=== PATIENT | female | born 1985 | race Caucasian/White ===

== ENCOUNTER 2021-12-19 14:19 | Inpatient (IN) | payer MEDICAID, SELFPAY ==
[2021-12-19] VITALS (7 sets, daily range): BP systolic 104–128; BP diastolic 68–87; PULSE 95–129; RESP 12–18; TEMP 36.7–37; O2SAT 95–99; BMI 20.3
--- NOTE | ~2021-12-19 | US_ITS ---
EXAMINATION: US ABDOMEN LIMITED CLINICAL INFORMATION: Elevated liver function tests. COMPARISON: Previous CT of the abdomen and pelvis 12/19/2021 TECHNIQUE: Real-time imaging of the right upper quadrant abdominal viscera. FINDINGS: PANCREAS: Normal. LIVER: The liver is normal in size. The liver contour is normal. Parenchymal echogenicity is increased.. No focal hepatic lesion. There is no intrahepatic biliary duct dilatation seen. GALLBLADDER: Normal. The gallbladder is physiologically distended without evidence of stones, sludge, polyps, wall thickening or pericholecystic fluid. COMMON BILE DUCT: Normal in caliber measuring 0.2 cm in diameter. RIGHT KIDNEY: Normal. No hydronephrosis. No renal calculi or focal parenchymal lesions. The kidney measures 12 cm in maximum dimension. FREE FLUID: None. US/US abdomen limited IMPRESSION: Echogenic liver suggestive of fatty infiltration. Otherwise unremarkable exam.
--- NOTE | ~2021-12-19 | CT_ITS ---
EXAMINATION: CT ABDOMEN AND PELVIS WITHOUT CONTRAST CLINICAL INFORMATION: Thrombocytopenia, cirrhosis . COMPARISON: No pertinent prior studies are available for comparison. TECHNIQUE: Multidetector volumetric imaging was performed from the superior aspect of the liver through the pubic symphysis without contrast per request. Sagittal and coronal reformatted images were obtained on the technologist workstation. This CT examination was performed using dose optimization techniques as appropriate, variously including the following: *Automated exposure control *Adjustment of mA and/or kV according to patient size (this includes techniques or standardized protocols for targeted exams where dose is matched to indication/reason for exam; i.e. extremities or head) *Use of iterative reconstruction technique DLP: 325 mGy-cm. FINDINGS: LUNG BASES: The visualized lung bases are unremarkable. LIVER, GALLBLADDER, BILIARY TREE: Significant fatty infiltration seen throughout the liver parenchyma without focal hepatic lesion nor obvious biliary ductal dilatation. The gallbladder is unremarkable with no evidence of radiopaque gallstones, gallbladder wall thickening, or obvious pericholecystic inflammatory changes. PANCREAS: Unremarkable. SPLEEN: Unremarkable. ADRENAL GLANDS: Unremarkable. KIDNEYS AND URETERS: The kidneys are normal in size, shape, and attenuation. No hydronephrosis, hydroureter, or calculi seen. No perinephric stranding. BLADDER: Air in the nondependent portion the bladder. Uncertain if this due to infectious etiology or catheterization GASTROINTESTINAL TRACT: The small and large bowel are unremarkable. The appendix is is not well-visualized but no focal inflammatory changes seen in the right lower quadrant. ABDOMINAL WALL: No significant hernia is appreciated. LYMPHOVASCULAR STRUCTURES: No lymphadenopathy. The aorta is unremarkable.. PELVIC VISCERA: Small amount of air in the vaginal vault of uncertain etiology. OSSEUS STRUCTURES: Unremarkable. CT/CT abdomen pelvis wo con IMPRESSION: Significant diffuse fatty infiltration of the liver but no focal hepatic lesion nor biliary ductal dilatation. Air is seen in the nondependent portion the bladder. Etiology of this is uncertain. Infectious etiology/cystitis could have this appearance although I do not appreciate any lateral wall thickening. Clinical correlation and/or correlation with urinalysis would be recommended.
--- NOTE | 2021-12-19 14:32 | ED.PSYCH ---
HPI - Psych General Chief Complaint: ETOH/Substance Use Stated Complaint: WANTS DETOX FOR ETOH,LAST DRANK THIS AM Time Seen by Provider: 12/19/21 14:32 Source: patient Mode of arrival: EMS Limitations: no limitations History of Present Illness HPI Narrative: Patient alcoholic been drinking heavy for last 2 weeks usually drinks wine was at [facility] [place], forced out of the hotel by PD requesting for detox. Patient also complaining of bleed which is frequent for her as she has low platelets no head injuries no rectal bleed denies any suicidal ideation/HI/AVH/VH patient was admitted to hospitals about 6 months ago and that time her platelet counts were 17,000 patient denies any abdominal pain no rectal bleeding melena Related Data Home Medications Medication Instructions Recorded Confirmed gabapentin 300 mg capsule 2 cap PO TID 12/19/21 12/19/21 multivitamin 1 tab PO DAILY 12/19/21 12/19/21 naltrexone 50 mg tablet 50 mg PO DAILY 12/19/21 12/19/21 Allergies Allergy/AdvReac Type Severity Reaction Status Date / Time No Known Allergies Allergy Verified 12/19/21 14:34 Review of Systems Review of Systems: Yes all other systems are reviewed and are negative FORMERLY [facility], [facility] Past Medical History Medical History Alcohol dependence Thrombocythemia Social History Social History Advance Directives: No Advance Directives Information Provided: No Physical Exam Vital Signs: Vital Signs: Last Vital Signs Temp 98.1 F 12/19/21 22:56 Pulse 114 H 12/19/21 22:56 Resp 14 12/19/21 22:56 BP 104/68 12/19/21 22:56 Pulse Ox 98 12/19/21 22:56 BMI result Body Mass Index 20.3 Appearance: Alert. Oriented X3. No acute distress. Eyes: PERRLA, No Nystagmus ENT: Pharynx normal. Oral Mucosa moist dried nosebleed Neck: Normal inspection. Neck supple. CVS: Normal heart rate and rhythm. Pulses normal. Respiratory: No respiratory distress. Equal air entry bilateral, no wheezing/rales/rhonchi Abdomen: Soft and nontender. Bowel sounds are present, no mass palpable, no CVA tenderness Skin: Skin warm and dry. Normal skin color. Normal skin turgor. Extremities: No lower extremity edema. No calf tenderness Psych mood stable, no delusions or hallucination denies SI/HI Neuro: Oriented X 3. No motor deficit. No sensory deficit.No cerebellar signs , cranial nerves II-XII intact MDM - Psych MDM Narrative Medical decision making narrative: Patient alcoholic with significant alcoholic hepatitis with significant thrombocytopenia with poor follow-up in the past with minor bleeding from the nose no active bleeding at this time H&H stable CT scan abdomen negative for splenomegaly or any acute pathology. 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 Lab Data Attestation: I reviewed the patient's lab results. Result diagrams: 12/19/21 16:36 12/19/21 16:36 Labs: Lab Results 12/19/21 12/19/21 12/19/21 Range/Units 15:09 15:09 15:13 WBC (4.8-10.8) X10*3/uL RBC (4.20-5.50) X10*6/uL Hgb (12.0-16.0) g/dl Hct (37.0-47.0) % MCV (80.0-98.0) fL MCH (27.0-33.0) pg MCHC (31.0-35.0) g/dl RDW (11.0-16.0) % Plt Count (160-400) X10*3/uL MPV (9.4-12.3) fL Immature Gran % (Auto) (0.0-0.4) % Neut % (Auto) (45-73) % Lymph % (Auto) (20-40) % Reeves % (Auto) (2-11) % Eos % (Auto) (0-4) % Baso % (Auto) (0-2) % Lymph # (Auto) (1.2-4.9) X10*3/uL Reeves # (Auto) (0.1-1.2) X10*3/uL Eos # (Auto) (0.0-0.4) X10*3/uL Baso # (Auto) (0.0-0.2) X10*3/uL Abs Immat Gran (auto) (0.00-0.03) X10*3/uL Absolute Neuts (auto) (2.0-8.3) x10*3/uL Absolute Nucleated RBC (0.0-0.012) X10*3/uL Nucleated RBC % (auto) (0.0-0.2) /100WBC Smear Tech's Comments PT (9.9-13.0) SEC INR (0.9-1.1) APTT (24.1-38.0) SEC Sodium (135-145) mmol/L Potassium (3.3-5.1) mmol/L Chloride (96-108) mmol/L Carbon Dioxide (22-29) mmol/L Anion Gap (12-20) BUN (9-16) mg/dL Creatinine (0.5-1.4) mg/dL Estim Creat Clear Calc Estimated GFR Random Glucose (60-115) mg/dL Calcium (8.4-10.2) mg/dL Magnesium (1.6-2.6) mg/dL Total Bilirubin (0.0-1.0) mg/dL Direct Bilirubin (0.0-0.5) mg/dL AST (5-31) U/L ALT (0-31) U/L Alkaline Phosphatase (39-117) U/L Total Protein (6.5-8.0) g/dL Albumin (3.5-5.0) g/dL Vitamin B12 (200-900) pg/mL Folate (> or = 4.0) ng/mL TSH (0.32-4.0) uIU/mL Urine Color YELLOW Urine Appearance HAZY Urine pH 5.5 (5.0-8.0) Ur Specific [place] >= 1.030 H (1.005-1.025) Urine Protein 1+ H (NEG-TRACE) MG/DL Urine Glucose (UA) NEG (NEG) MG/DL Urine Ketones 15 (NEG) MG/DL Urine Blood 2+ H (NEG) Urine Nitrite NEG (NEG) Ur Leukocyte Esterase TRACE H (NEG) Urine RBC 0-2 (0) /HPF Urine WBC 1-4 (0-4) /HPF Ur Squamous Epith Cells 2+ /LPF Urine Bacteria 4+ /LPF Urine Test NEGATIVE (NEGATIVE) Urine Opiates Screen Not Detected (Not Detect) Urine Fentanyl Screen Not Detected (Not Detect) Ur Barbiturates Screen Not Detected (Not Detect) Ur Phencyclidine Scrn Not Detected (Not Detect) Ur Amphetamines Screen Not Detected (Not Detect) U Benzodiazepines Scrn Not Detected (Not Detect) Urine Cocaine Screen Not Detected (Not Detect) U Marijuana (THC) Screen Not Detected (Not Detect) Ethyl Alcohol mg/dL Acetone, Qual (Negative) COVID-19 (TERRELL) (Negative) COVID-19 Clin Com Influenza Type A (BIJAL) (Negative) Influenza Type B (BIJAL) (Negative) Influenza A & B Note Blood Type Antibody Screen 12/19/21 12/19/21 12/19/21 Range/Units 15:21 16:36 16:36 WBC 2.4 L (4.8-10.8) X10*3/uL RBC 4.12 L (4.20-5.50) X10*6/uL Hgb 12.9 (12.0-16.0) g/dl Hct 35.7 L (37.0-47.0) % MCV 86.7 (80.0-98.0) fL MCH 31.3 (27.0-33.0) pg MCHC 36.1 H (31.0-35.0) g/dl RDW 13.2 (11.0-16.0) % Plt Count 11 L* (160-400) X10*3/uL MPV 10.1 (9.4-12.3) fL Immature Gran % (Auto) 1.7 H (0.0-0.4) % Neut % (Auto) 61.0 (45-73) % Lymph % (Auto) 31.4 (20-40) % Reeves % (Auto) 5.9 (2-11) % Eos % (Auto) 0.0 (0-4) % Baso % (Auto) 0.0 (0-2) % Lymph # (Auto) 0.7 L (1.2-4.9) X10*3/uL Reeves # (Auto) 0.1 (0.1-1.2) X10*3/uL Eos # (Auto) 0.0 (0.0-0.4) X10*3/uL Baso # (Auto) 0.0 (0.0-0.2) X10*3/uL Abs Immat Gran (auto) 0.04 H (0.00-0.03) X10*3/uL Absolute Neuts (auto) 1.4 L (2.0-8.3) x10*3/uL Absolute Nucleated RBC 0.020 H (0.0-0.012) X10*3/uL Nucleated RBC % (auto) 0.8 H (0.0-0.2) /100WBC Smear Tech's Comments VERIFIED PT (9.9-13.0) SEC INR (0.9-1.1) APTT (24.1-38.0) SEC Sodium 135 (135-145) mmol/L Potassium 3.8 (3.3-5.1) mmol/L Chloride 88 L (96-108) mmol/L Carbon Dioxide 27 (22-29) mmol/L Anion Gap 24 H (12-20) BUN 15 (9-16) mg/dL Creatinine 0.73 (0.5-1.4) mg/dL Estim Creat Clear Calc 99.1 Estimated GFR > 60 Random Glucose 80 (60-115) mg/dL Calcium 8.4 (8.4-10.2) mg/dL Magnesium (1.6-2.6) mg/dL Total Bilirubin 2.1 H (0.0-1.0) mg/dL Direct Bilirubin 1.4 H (0.0-0.5) mg/dL AST 795 H (5-31) U/L ALT 275 H (0-31) U/L Alkaline Phosphatase 165 H (39-117) U/L Total Protein 7.8 (6.5-8.0) g/dL Albumin 4.5 (3.5-5.0) g/dL Vitamin B12 (200-900) pg/mL Folate (> or = 4.0) ng/mL TSH (0.32-4.0) uIU/mL Urine Color Urine Appearance Urine pH (5.0-8.0) Ur Specific [place] (1.005-1.025) Urine Protein (NEG-TRACE) MG/DL Urine Glucose (UA) (NEG) MG/DL Urine Ketones (NEG) MG/DL Urine Blood (NEG) Urine Nitrite (NEG) Ur Leukocyte Esterase (NEG) Urine RBC (0) /HPF Urine WBC (0-4) /HPF Ur Squamous Epith Cells /LPF Urine Bacteria /LPF Urine Test (NEGATIVE) Urine Opiates Screen (Not Detect) Urine Fentanyl Screen (Not Detect) Ur Barbiturates Screen (Not Detect) Ur Phencyclidine Scrn (Not Detect) Ur Amphetamines Screen (Not Detect) U Benzodiazepines Scrn (Not Detect) Urine Cocaine Screen (Not Detect) U Marijuana (THC) Screen (Not Detect) Ethyl Alcohol mg/dL Acetone, Qual (Negative) COVID-19 (TERRELL) Negative (Negative) COVID-19 Clin Com See Note Influenza Type A (BIJAL) (Negative) Influenza Type B (BIJAL) (Negative) Influenza A & B Note Blood Type Antibody Screen 12/19/21 12/19/21 12/19/21 Range/Units 16:36 16:36 16:36 WBC (4.8-10.8) X10*3/uL RBC (4.20-5.50) X10*6/uL Hgb (12.0-16.0) g/dl Hct (37.0-47.0) % MCV (80.0-98.0) fL MCH (27.0-33.0) pg MCHC (31.0-35.0) g/dl RDW (11.0-16.0) % Plt Count (160-400) X10*3/uL MPV (9.4-12.3) fL Immature Gran % (Auto) (0.0-0.4) % Neut % (Auto) (45-73) % Lymph % (Auto) (20-40) % Reeves % (Auto) (2-11) % Eos % (Auto) (0-4) % Baso % (Auto) (0-2) % Lymph # (Auto) (1.2-4.9) X10*3/uL Reeves # (Auto) (0.1-1.2) X10*3/uL Eos # (Auto) (0.0-0.4) X10*3/uL Baso # (Auto) (0.0-0.2) X10*3/uL Abs Immat Gran (auto) (0.00-0.03) X10*3/uL Absolute Neuts (auto) (2.0-8.3) x10*3/uL Absolute Nucleated RBC (0.0-0.012) X10*3/uL Nucleated RBC % (auto) (0.0-0.2) /100WBC Smear Tech's Comments PT (9.9-13.0) SEC INR (0.9-1.1) APTT (24.1-38.0) SEC Sodium (135-145) mmol/L Potassium (3.3-5.1) mmol/L Chloride (96-108) mmol/L Carbon Dioxide (22-29) mmol/L Anion Gap (12-20) BUN (9-16) mg/dL Creatinine (0.5-1.4) mg/dL Estim Creat Clear Calc Estimated GFR Random Glucose (60-115) mg/dL Calcium (8.4-10.2) mg/dL Magnesium 2.4 (1.6-2.6) mg/dL Total Bilirubin (0.0-1.0) mg/dL Direct Bilirubin (0.0-0.5) mg/dL AST (5-31) U/L ALT (0-31) U/L Alkaline Phosphatase (39-117) U/L Total Protein (6.5-8.0) g/dL Albumin (3.5-5.0) g/dL Vitamin B12 (200-900) pg/mL Folate (> or = 4.0) ng/mL TSH 0.68 (0.32-4.0) uIU/mL Urine Color Urine Appearance Urine pH (5.0-8.0) Ur Specific [place] (1.005-1.025) Urine Protein (NEG-TRACE) MG/DL Urine Glucose (UA) (NEG) MG/DL Urine Ketones (NEG) MG/DL Urine Blood (NEG) Urine Nitrite (NEG) Ur Leukocyte Esterase (NEG) Urine RBC (0) /HPF Urine WBC (0-4) /HPF Ur Squamous Epith Cells /LPF Urine Bacteria /LPF Urine Test (NEGATIVE) Urine Opiates Screen (Not Detect) Urine Fentanyl Screen (Not Detect) Ur Barbiturates Screen (Not Detect) Ur Phencyclidine Scrn (Not Detect) Ur Amphetamines Screen (Not Detect) U Benzodiazepines Scrn (Not Detect) Urine Cocaine Screen (Not Detect) U Marijuana (THC) Screen (Not Detect) Ethyl Alcohol 438 H* mg/dL Acetone, Qual Negative (Negative) COVID-19 (TERRELL) (Negative) COVID-19 Clin Com Influenza Type A (BIJAL) Negative (Negative) Influenza Type B (BIJAL) Negative (Negative) Influenza A & B Note See Note Blood Type Antibody Screen 12/19/21 12/19/21 12/19/21 Range/Units 16:36 19:16 19:16 WBC (4.8-10.8) X10*3/uL RBC (4.20-5.50) X10*6/uL Hgb (12.0-16.0) g/dl Hct (37.0-47.0) % MCV (80.0-98.0) fL MCH (27.0-33.0) pg MCHC (31.0-35.0) g/dl RDW (11.0-16.0) % Plt Count (160-400) X10*3/uL MPV (9.4-12.3) fL Immature Gran % (Auto) (0.0-0.4) % Neut % (Auto) (45-73) % Lymph % (Auto) (20-40) % Reeves % (Auto) (2-11) % Eos % (Auto) (0-4) % Baso % (Auto) (0-2) % Lymph # (Auto) (1.2-4.9) X10*3/uL [place]eves # (Auto) (0.1-1.2) X10*3/uL Eos # (Auto) (0.0-0.4) X10*3/uL Baso # (Auto) (0.0-0.2) X10*3/uL Abs Immat Gran (auto) (0.00-0.03) X10*3/uL Absolute Neuts (auto) (2.0-8.3) x10*3/uL Absolute Nucleated RBC (0.0-0.012) X10*3/uL Nucleated RBC % (auto) (0.0-0.2) /100WBC Smear Tech's Comments PT 11.5 (9.9-13.0) SEC INR 1.0 (0.9-1.1) APTT 34.3 (24.1-38.0) SEC Sodium (135-145) mmol/L Potassium (3.3-5.1) mmol/L Chloride (96-108) mmol/L Carbon Dioxide (22-29) mmol/L Anion Gap (12-20) BUN (9-16) mg/dL Creatinine (0.5-1.4) mg/dL Estim Creat Clear Calc Estimated GFR Random Glucose (60-115) mg/dL Calcium (8.4-10.2) mg/dL Magnesium (1.6-2.6) mg/dL Total Bilirubin (0.0-1.0) mg/dL Direct Bilirubin (0.0-0.5) mg/dL AST (5-31) U/L ALT (0-31) U/L Alkaline Phosphatase (39-117) U/L Total Protein (6.5-8.0) g/dL Albumin (3.5-5.0) g/dL Vitamin B12 1217 H (200-900) pg/mL Folate > 20.0 (> or = 4.0) ng/mL TSH (0.32-4.0) uIU/mL Urine Color Urine Appearance Urine pH (5.0-8.0) Ur Specific [place] (1.005-1.025) Urine Protein (NEG-TRACE) MG/DL Urine Glucose (UA) (NEG) MG/DL Urine Ketones (NEG) MG/DL Urine Blood (NEG) Urine Nitrite (NEG) Ur Leukocyte Esterase (NEG) Urine RBC (0) /HPF Urine WBC (0-4) /HPF Ur Squamous Epith Cells /LPF Urine Bacteria /LPF Urine Test (NEGATIVE) Urine Opiates Screen (Not Detect) Urine Fentanyl Screen (Not Detect) Ur Barbiturates Screen (Not Detect) Ur Phencyclidine Scrn (Not Detect) Ur Amphetamines Screen (Not Detect) U Benzodiazepines Scrn (Not Detect) Urine Cocaine Screen (Not Detect) U Marijuana (THC) Screen (Not Detect) Ethyl Alcohol mg/dL Acetone, Qual (Negative) COVID-19 (TERRELL) (Negative) COVID-19 Clin Com Influenza Type A (BIJAL) (Negative) Influenza Type B (BIJAL) (Negative) Influenza A & B Note Blood Type O Positive Antibody Screen NEGATIVE Discharge Plan Discharge Clinical Impression: Alcoholic intoxication, Thrombocytopenia, Elevated LFTs Patient Disposition: Admitted As Inpatient
[2021-12-19] MEDS: Folic Acid 1 MG TABLET PO (15:22)
[2021-12-19] MEDS: Thiamine HCL 100 MG TABLET PO (15:22)
[2021-12-19 15:33] LABS: Appearance Urine HAZY; Color Urine YELLOW; Glucose Urine UA NEG (NEG); Leukocyte Esterase Urine TRACE (NEG); Nitrite Urine NEG (NEG); PH 5.5 (5.0-8.0); Specific Gravity - Urine >= 1.030 (1.005-1.025); UACC Culture Trigger NO; Urine Blood 2+ (NEG); Urine Ketones 15 MG/DL (NEG); Urine Protein 1+ MG/DL (NEG-TRACE)
[2021-12-19 15:36] LABS: UPreg QC Valid YES; Urine Pregnancy NEGATIVE (NEGATIVE)
[2021-12-19 15:45] LABS: Bacteria Urine 4+ /LPF; RBC Urine 0-2 /HPF (0); Squamous Epithelial Cell Urine 2+ /LPF
[2021-12-19 15:46] LABS: Amphetamine Screen Urine Not Detected (Not Detect); Barbiturates, Urine Not Detected (Not Detect); Benzodiazepines Screen Urine Not Detected (Not Detect); Cannabinoid Screen Urine Not Detected (Not Detect); Cocaine Screen Urine Not Detected (Not Detect); Fentanyl, urine Not Detected (Not Detect); Opiate Screen Urine Not Detected (Not Detect); Phencyclidine Screen Urine Not Detected (Not Detect)
[2021-12-19 15:52] LABS: COVID-19 Test Negative (Negative); IDNOW Serial# 55D5AD1C
[2021-12-19 16:55] LABS: Ethanol 438 mg/dL
[2021-12-19 16:57] LABS: Influenza A Negative (Negative); Influenza B2 Negative (Negative); Magnesium 2.4 mg/dL (1.6-2.6)
[2021-12-19 16:58] LABS: Alanine Aminotransferase 275 U/L (0-31); Albumin Level 4.5 g/dL (3.5-5.0); Alkaline Phosphatase 165 U/L (39-117); Anion Gap 24 (12-20); Aspartate Amino Transferase 795 U/L (5-31); Bilirubin Direct 1.4 mg/dL (0.0-0.5); Bilirubin Total 2.1 mg/dL (0.0-1.0); Blood Urea Nitrogen 15 mg/dL (9-16); Calcium 8.4 mg/dL (8.4-10.2); Carbon Dioxide 27 mmol/L (22-29); Chloride 88 mmol/L (96-108); Creatinine Clr Calc Pharmacy 99.1; Estimated Glomerular Filt Rate > 60; Glucose Random 80 mg/dL (60-115); Potassium 3.8 mmol/L (3.3-5.1); Sodium 135 mmol/L (135-145); Total Protein 7.8 g/dL (6.5-8.0)
[2021-12-19 17:01] LABS: Hematocrit 35.7 % (37.0-47.0); Hemoglobin 12.9 g/dl (12.0-16.0); Imm Gran Abs Auto 0.04 X10*3/uL (0.00-0.03); Imm Gran Pct Auto 1.7 % (0.0-0.4); Lymphocytes Absolute Auto 0.7 X10*3/uL (1.2-4.9); Lymphocytes Percent Auto 31.4 % (20-40); MANUAL DIFF FLAG SCAN; Mean Corpuscular HGB Conc 36.1 g/dl (31.0-35.0); Mean Corpuscular Hemoglobin 31.3 pg (27.0-33.0); Mean Corpuscular Volume 86.7 fL (80.0-98.0); Mean Platelet Volume 10.1 fL (9.4-12.3); Monocytes Absolute Auto 0.1 X10*3/uL (0.1-1.2); Monocytes Percent Auto 5.9 % (2-11); NRBC Pct Auto 0.8 /100WBC (0.0-0.2); Neutrophils Absolute Auto 1.4 x10*3/uL (2.0-8.3); Red Blood Count 4.12 X10*6/uL (4.20-5.50); Red Cell Distribution Width 13.2 % (11.0-16.0); SCAN SMEAR FLAG 1
[2021-12-19 17:22] LABS: White Blood Count 2.4 X10*3/uL (4.8-10.8)
[2021-12-19 17:24] LABS: Platelet Count 11 X10*3/uL (160-400)
[2021-12-19 17:51] LABS: Acetone, serum QL Negative (Negative); SLIDE REVIEW VERIFIED
[2021-12-19 18:31] LABS: Thyroid Stimulating Hormone 0.68 uIU/mL (0.32-4.0)
[2021-12-19] MEDS: LORazepam 2 MG/ML VIAL 1 MG IVPUSH (18:37)
[2021-12-19] MEDS: Dextrose 5 % and 0.45 % NaCl 1,000 ML 125 ML IVCONT (18:38)
--- NOTE | 2021-12-19 18:38 | MHC.RECOVSUP ---
Addendum entered by David Jarrett 12/19/21 19:42: Patient was admitted Original Note: ? Reason for consult:Recovery Support o Current location:ED 15 o Identified substance use concern:ETOH - Seeking ATS (detox) - Support ? Intervention: o ATS bed search started/completed/in process o Community resources provided o Harm reduction discussion ? Plan: o Referral to CCC o Bed search in progress to o Follow up tomorrow o Patient awaiting crisis evaluation o Patient to follow up with HF after discharge ? Additional information:Patient seeking detox, [facility] tomorrow at 9:45am f/u tomorrow
[2021-12-19 18:52] LABS: Folate > 20.0 ng/mL (> or = 4.0); Vitamin B12 1217 pg/mL (200-900)
[2021-12-19 19:37] LABS: Prothrombin Time 11.5 SEC (9.9-13.0)
[2021-12-19 19:40] LABS: Partial Thromboplastin Time 34.3 SEC (24.1-38.0)
--- NOTE | 2021-12-19 20:13 | PC.NURSE ---
Addendum entered by Jeanne Ferguson 12/20/21 06:56: Report given to MIKE Ayala Addendum entered by Jeanne Ferguson 12/20/21 06:23: Dr. Ryan made aware of platelets count 17, no new order given Addendum entered by Jeanne Ferguson 12/19/21 21:24: ptt started on platelets transfusion, educated on signs and symptoms of reactions, verbalized understanding Original Note: report received from MIKE Timmons. pt is alert and oriented. sitter by bedside. no signs of acute distress notice. breathing equally unlabored.
--- NOTE | 2021-12-19 20:27 | PHA.MEDREC ---
Pharmacy Consult ? Medication Reconciliation Pharmacy has completed the medication reconciliation. Spoke with patient in the ED. Patient has not taken her medications in a couple weeks
--- NOTE | 2021-12-19 20:46 | PM.IMHP ---
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 She has been staying at a local hotel and was forced out by Police and was seeking detox, he reports having being feeling sick with nause and vomitting and has had nosebleed. Her platlet cout is 11, no obvious signs of alcohol withdrawal, alochol level is 438, LFTs are high, normal INR Review of Systems Review of Systems: Gen: no fever Resp: no sob, no cough CV: no chest, no VILLANUEVA, no leg edema GI: + n/v, no abd pain Neuro: No confusion, no tremors Yes all other systems are reviewed and are negative [facility] Medical History (Updated 12/19/21 @ 21:02 by Soham Ryan MD) Alcohol dependence Thrombocythemia Pertinent family history: grand parent with alcholism Social History Advance Directives: No Advance Directives Information Provided: No Meds Allergies Allergy/AdvReac Type Severity Reaction Status Date / Time No Known Allergies Allergy Verified 12/19/21 14:34 Active Medications: Current Medications Dextrose/Sodium Chloride (D51/2ns) 1,000 mls @ 125 mls/hr IVCONT .Q8H DIANA Last Admin: 12/19/21 18:38 Dose: 125 mls/hr Documented by: Pharmacy Consult (Consult Rx Perform Med Rec) 1 each MISCELLANE ONCE PRN PRN Reason: Consult order Home Medications Medication Instructions Recorded Confirmed Last Taken Type gabapentin 300 mg capsule 2 cap PO TID 12/19/21 12/19/21 Unknown History multivitamin 1 tab PO DAILY 12/19/21 12/19/21 Unknown History naltrexone 50 mg tablet 50 mg PO DAILY 12/19/21 12/19/21 Unknown History Physical Exam Vital Signs and Narrative: Vital Signs: Last Vital Signs Temp 98.3 F 12/19/21 19:19 Pulse 113 H 12/19/21 19:19 Resp 18 12/19/21 19:19 BP 126/82 12/19/21 19:19 Pulse Ox 96 12/19/21 19:19 BMI result Body Mass Index 20.3 Const: Other: Constitutional: Alert, in no distress, depressed looking Mental Status: Oriented to person, place and time. Eyes: Pupils are equal, round and reactive to light. Ear, Nose and Throat: Oropharynx clear, mucous membranes moist. Ears and nose without deformities Respiratory: Clear to auscultation. No wheezing, rales or rhonchi. Cardiovascular: S1 S2 regular. No murmurs, rubs or gallops. Gastrointestinal: Abdomen soft, non-tender, non-distended. Normal bowel sounds.? Neurologic: Cranial nerves II-XII grossly intact. No focal neurological deficits. Moves all extremities spontaneously.? Skin: No rashes or lesions.? Musculoskeletal: No cyanosis or clubbing. Psychiatric: Normal mood and affect? Results Labs CBC and Chem 7: 12/19/21 16:36 12/19/21 16:36 Labs: Laboratory Results - last 24 hr 12/19/21 12/19/21 12/19/21 15:09 15:09 15:13 MCV MCH MCHC RDW Plt Count MPV Immature Gran % (Auto) Neut % (Auto) Lymph % (Auto) [place] % (Auto) Eos % (Auto) Baso % (Auto) Lymph # (Auto) [place] # (Auto) Eos # (Auto) Baso # (Auto) Abs Immat Gran (auto) Absolute Neuts (auto) Absolute Nucleated RBC Nucleated RBC % (auto) Smear Tech's Comments PT INR APTT Anion Gap Estim Creat Clear Calc Estimated GFR Random Glucose Calcium Magnesium Total Bilirubin Direct Bilirubin AST ALT Alkaline Phosphatase Total Protein Albumin Vitamin B12 Folate TSH Urine Color YELLOW Urine Appearance HAZY Urine pH 5.5 Ur Specific [place] >= 1.030 H Urine Protein 1+ H Urine Glucose (UA) NEG Urine Ketones 15 Urine Blood 2+ H Urine Nitrite NEG Ur Leukocyte Esterase TRACE H Urine RBC 0-2 Urine WBC 1-4 Ur Squamous Epith Cells 2+ Urine Bacteria 4+ Urine Test NEGATIVE Urine Opiates Screen Not Detected Urine Fentanyl Screen Not Detected Ur Barbiturates Screen Not Detected Ur Phencyclidine Scrn Not Detected Ur Amphetamines Screen Not Detected U Benzodiazepines Scrn Not Detected Urine Cocaine Screen Not Detected U Marijuana (THC) Screen Not Detected Ethyl Alcohol Acetone, Qual COVID-19 (TERRELL) COVID-19 Clin Com Influenza Type A (BIJAL) Influenza Type B (BIJAL) Influenza A & B Note Blood Type Antibody Screen 12/19/21 12/19/21 12/19/21 15:21 16:36 16:36 MCV 86.7 MCH 31.3 MCHC 36.1 H RDW 13.2 Plt Count 11 L* MPV 10.1 Immature Gran % (Auto) 1.7 H Neut % (Auto) 61.0 Lymph % (Auto) 31.4 [place] % (Auto) 5.9 Eos % (Auto) 0.0 Baso % (Auto) 0.0 Lymph # (Auto) 0.7 L [place] # (Auto) 0.1 Eos # (Auto) 0.0 Baso # (Auto) 0.0 Abs Immat Gran (auto) 0.04 H Absolute Neuts (auto) 1.4 L Absolute Nucleated RBC 0.020 H Nucleated RBC % (auto) 0.8 H Smear Tech's Comments VERIFIED PT INR APTT Anion Gap 24 H Estim Creat Clear Calc 99.1 Estimated GFR > 60 Random Glucose 80 Calcium 8.4 Magnesium Total Bilirubin 2.1 H Direct Bilirubin 1.4 H AST 795 H ALT 275 H Alkaline Phosphatase 165 H Total Protein 7.8 Albumin 4.5 Vitamin B12 Folate TSH Urine Color Urine Appearance Urine pH Ur Specific [place] Urine Protein Urine Glucose (UA) Urine Ketones Urine Blood Urine Nitrite Ur Leukocyte Esterase Urine RBC Urine WBC Ur Squamous Epith Cells Urine Bacteria Urine Test Urine Opiates Screen Urine Fentanyl Screen Ur Barbiturates Screen Ur Phencyclidine Scrn Ur Amphetamines Screen U Benzodiazepines Scrn Urine Cocaine Screen U Marijuana (THC) Screen Ethyl Alcohol Acetone, Qual COVID-19 (TERRELL) Negative COVID-19 Clin Com See Note Influenza Type A (BIJAL) Influenza Type B (BIJAL) Influenza A & B Note Blood Type Antibody Screen 12/19/21 12/19/21 12/19/21 16:36 16:36 16:36 MCV MCH MCHC RDW Plt Count MPV Immature Gran % (Auto) Neut % (Auto) Lymph % (Auto) [place] % (Auto) Eos % (Auto) Baso % (Auto) Lymph # (Auto) [place] # (Auto) Eos # (Auto) Baso # (Auto) Abs Immat Gran (auto) Absolute Neuts (auto) Absolute Nucleated RBC Nucleated RBC % (auto) Smear Tech's Comments PT INR APTT Anion Gap Estim Creat Clear Calc Estimated GFR Random Glucose Calcium Magnesium 2.4 Total Bilirubin Direct Bilirubin AST ALT Alkaline Phosphatase Total Protein Albumin Vitamin B12 Folate TSH 0.68 Urine Color Urine Appearance Urine pH Ur Specific [place] Urine Protein Urine Glucose (UA) Urine Ketones Urine Blood Urine Nitrite Ur Leukocyte Esterase Urine RBC Urine WBC Ur Squamous Epith Cells Urine Bacteria Urine Test Urine Opiates Screen Urine Fentanyl Screen Ur Barbiturates Screen Ur Phencyclidine Scrn Ur Amphetamines Screen U Benzodiazepines Scrn Urine Cocaine Screen U Marijuana (THC) Screen Ethyl Alcohol 438 H* Acetone, Qual Negative COVID-19 (TERRELL) COVID-19 Clin Com Influenza Type A (BIJAL) Negative Influenza Type B (BIJAL) Negative Influenza A & B Note See Note Blood Type Antibody Screen 12/19/21 12/19/21 12/19/21 16:36 19:16 19:16 MCV MCH MCHC RDW Plt Count MPV Immature Gran % (Auto) Neut % (Auto) Lymph % (Auto) [place] % (Auto) Eos % (Auto) Baso % (Auto) Lymph # (Auto) [place] # (Auto) Eos # (Auto) Baso # (Auto) Abs Immat Gran (auto) Absolute Neuts (auto) Absolute Nucleated RBC Nucleated RBC % (auto) Smear Tech's Comments PT 11.5 INR 1.0 APTT 34.3 Anion Gap Estim Creat Clear Calc Estimated GFR Random Glucose Calcium Magnesium Total Bilirubin Direct Bilirubin AST ALT Alkaline Phosphatase Total Protein Albumin Vitamin B12 1217 H Folate > 20.0 TSH Urine Color Urine Appearance Urine pH Ur Specific [place] Urine Protein Urine Glucose (UA) Urine Ketones Urine Blood Urine Nitrite Ur Leukocyte Esterase Urine RBC Urine WBC Ur Squamous Epith Cells Urine Bacteria Urine Test Urine Opiates Screen Urine Fentanyl Screen Ur Barbiturates Screen Ur Phencyclidine Scrn Ur Amphetamines Screen U Benzodiazepines Scrn Urine Cocaine Screen U Marijuana (THC) Screen Ethyl Alcohol Acetone, Qual COVID-19 (TERRELL) COVID-19 Clin Com Influenza Type A (BIJAL) Influenza Type B (BIJAL) Influenza A & B Note Blood Type O Positive Antibody Screen NEGATIVE Imaging Radiologist's Impressions: Impressions Abdomen/Pelvis CT 12/19/21 19:45 IMPRESSION: Significant diffuse fatty infiltration of the liver but no focal hepatic lesion nor biliary ductal dilatation. Air is seen in the nondependent portion the bladder. Etiology of this is uncertain. Infectious etiology/cystitis could have this appearance although I do not appreciate any lateral wall thickening. Clinical correlation and/or correlation with urinalysis would be recommended. Assessment and Plan (1) Alcohol dependence: Status: Acute (2) Thrombocythemia: Status: Acute Plan 36 year old female with alcohol dependency here with alcohol intoxiciation, at risk for withdrawal, possible alcoholic gastritis and thrombocytopenia #Alcohol dependence/risk of withdrawal -Start Phenobarbital protocol -Thiamine Supplement, Folate is normal -GI eval #Alcoholic hepatitis, Kenyatta discriminant function is 4.4 which confer good prognosis, no indication for steroid #Thrombocytopenia--likely d/t alcholic liver disease--had no bleed earlier but presently no bleed. -Transfuse 1 unit -Hematolggy consult Admission to [facility] midnight for treatment of alcohol withdrawal and monitoring for seizure, Quality Stroke Does the patient have a stroke diagnosis?: No VTE Prior VTE?: No VTE Risk Level:: Medical - low VTE Device Contraindication: Treatment Not Indicated VTE Drug Contraindication: Treatment Not Indicated
[2021-12-19] MEDS: PHENobarbitaL 200 MG, PHENobarbitaL 30 MG 230 MG PO (22:57)
[2021-12-19] MEDS: Dextrose 5 % and 0.45 % NaCl 1,000 ML 100 ML IVCONT (22:58)
[2021-12-20] VITALS (9 sets, daily range): BP systolic 108–140; BP diastolic 72–85; PULSE 93–118; RESP 12–20; TEMP 36.2–36.9; O2SAT 95–99
[2021-12-20 06:01] LABS: Hematocrit 31.4 % (37.0-47.0); Hemoglobin 11.2 g/dl (12.0-16.0); Imm Gran Abs Auto 0.02 X10*3/uL (0.00-0.03); Imm Gran Pct Auto 0.9 % (0.0-0.4); Lymphocytes Absolute Auto 0.8 X10*3/uL (1.2-4.9); Lymphocytes Percent Auto 34.3 % (20-40); MANUAL DIFF FLAG SCAN; Mean Corpuscular HGB Conc 35.7 g/dl (31.0-35.0); Mean Corpuscular Hemoglobin 30.9 pg (27.0-33.0); Mean Corpuscular Volume 86.7 fL (80.0-98.0); Mean Platelet Volume 8.9 fL (9.4-12.3); Monocytes Absolute Auto 0.2 X10*3/uL (0.1-1.2); Monocytes Percent Auto 9.6 % (2-11); Neutrophils Absolute Auto 1.3 x10*3/uL (2.0-8.3); Neutrophils Percent Auto 55.2 % (45-73); Red Blood Count 3.62 X10*6/uL (4.20-5.50); Red Cell Distribution Width 13.1 % (11.0-16.0); SCAN SMEAR FLAG 1; White Blood Count 2.3 X10*3/uL (4.8-10.8)
[2021-12-20 06:03] LABS: Platelet Count 17 X10*3/uL (160-400)
[2021-12-20 06:23] LABS: Alanine Aminotransferase 234 U/L (0-31); Alkaline Phosphatase 154 U/L (39-117); Aspartate Amino Transferase 664 U/L (5-31); Bilirubin Direct 1.1 mg/dL (0.0-0.5); Bilirubin Total 1.8 mg/dL (0.0-1.0); Total Protein 6.9 g/dL (6.5-8.0)
[2021-12-20 06:38] LABS: SLIDE REVIEW VERIFIED
--- NOTE | 2021-12-20 06:47 | PM.GICN ---
History of Present Illness Data of Consult Service Date: 12/20/21 Requesting physician: Soham Ryan Primary Care Provider: None Physician HPI Reason for consult: Acute alcoholic hepatitis 36 YF with hx of ETOH abuse and thrombocytopenia came to [facility] ED yesterday with acute alcohol intoxication and nose bleeds: Patient alcoholic been drinking heavy for last 2 weeks usually drinks wine. [facility] out of [facility] by the Police Dept requesting for detox.? Patient also complaining of nose bleeds which is frequent for her as she has low platelets. No head injuries, no rectal bleed denies any suicidal ideation. Patient complains of poor appetite with intermittent nausea and vomiting (yellow fluid) for the past few days. She has noted loose stools for the past week. PO intake has been poor and she thinks she may have lost some weight. She denies abdominal pain, heartburn, dysphagia, recent change in bowel habits, constipation, black stools or rectal bleeding. Patient denies major cardiac or pulmonary problems, loud snoring or sleep apnea Denies being on chronic anticoagulation. Takes Ibuprofen for HAs and has not taken any over the past week. Pt has been drinking intermittently since age 21 - can drink upto a box of wine in a day. She has been through treatment programs a few times and relapses after 3-4 months She denies smoking, IV drug use or using marijuana. 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 Patient was admitted to hospitals about 6 months ago and that time her platelet counts were 17,000 patient denies any abdominal pain no rectal bleeding melena IMAGING STUDIES: 12/19/[address] SCAN SHOWED Significant diffuse fatty infiltration of the liver but no focal hepatic lesion nor biliary ductal dilatation. ? Air is seen in the nondependent portion the bladder. Etiology of this is uncertain. Infectious etiology/cystitis could have this appearance although I do not appreciate any lateral wall thickening. Clinical correlation and/or correlation with urinalysis would be recommended. Review of Systems Review of Systems: Gen: no fever Resp: no sob, no cough CV: no chest, no VILLANUEVA, no leg edema GI: + n/v, no abd pain Neuro: No confusion, no tremors Yes all other systems are reviewed and are negative Constitutional: Constitutional: Reports weight loss Cardiovascular: Cardiovascular: Denies chest pain and Denies dyspnea Respiratory: Respiratory: Denies cough and Denies dyspnea Gastrointestinal: Gastrointestinal: Denies abdominal pain, Reports loose stools, Reports nausea and Reports vomiting PMFSH Past Medical History Medical History Alcohol dependence Thrombocythemia Social History Social History Advance Directives: No Advance Directives Information Provided: No Meds Allergies Allergy/AdvReac Type Severity Reaction Status Date / Time No Known Allergies Allergy Verified 12/19/21 14:34 Active Medications: Current Medications Gabapentin (Gabapentin 300 Mg Capsule) 600 mg PO TID [facility] Dextrose/Sodium Chloride (D51/2ns) 1,000 mls @ 125 mls/hr IVCONT .Q8H [facility] Last Admin: 12/19/21 22:38 Dose: Not Given Documented by: Dextrose/Sodium Chloride (D51/2ns) 1,000 mls @ 100 mls/hr IVCONT .Q10H [facility] Last Admin: 12/19/21 22:58 Dose: 100 mls/hr Documented by: Melatonin (Melatonin 3 Mg Tablet) 6 mg PO BEDTIME PRN PRN Reason: Insomnia Multivitamins/Vitamin C (Multivitamin Tablet) 1 tab PO DAILY [facility] Naltrexone HCl (Naltrexone Hcl 50 Mg Tablet) 50 mg PO DAILY [facility] Pharmacy Consult (Consult Rx Perform Med Rec) 1 each MISCELLANE ONCE PRN PRN Reason: Consult order Pharmacy Consult (Consult Rx Etoh Phenob Po Dose) 1 each MISCELLANE ONCE PRN; Protocol PRN Reason: Consult order Phenobarbital (Phenobarbital 15 Mg Tablet) 45 mg PO BID [facility] Stop: 12/21/21 21:01 Phenobarbital (Phenobarbital 15 Mg Tablet) 15 mg PO BID [facility] Stop: 12/23/21 21:01 Phenobarbital (Phenobarbital 15 Mg Tablet) 15 mg PO DAILY [facility] Stop: 12/25/21 09:01 Sodium Chloride (0.9 % Sodium Chloride Flush 3 Ml Syringe) 3 ml IVFLUSH QSHIFT [facility] Last Admin: 12/19/21 23:01 Dose: Not Given Documented by: Thiamine HCl (Thiamine Hcl 100 Mg Tablet) 100 mg PO DAILY [facility] Stop: 12/22/21 09:01 Home Medications Medication Instructions Recorded Confirmed Last Taken Type gabapentin 300 mg capsule 2 cap PO TID 12/19/21 12/19/21 Unknown History multivitamin 1 tab PO DAILY 12/19/21 12/19/21 Unknown History naltrexone 50 mg tablet 50 mg PO DAILY 12/19/21 12/19/21 Unknown History Physical Exam Vital Signs: Vital Signs: Last Vital Signs Temp 98.5 F 12/20/21 05:46 Pulse 105 H 12/20/21 05:46 Resp 20 12/20/21 05:46 BP 112/76 12/20/21 05:46 Pulse Ox 98 12/20/21 05:46 BMI result Body Mass Index 20.3 Const: General: no acute distress, anxious and tired appearing Nutritional Appearance: average body habitus Orientation/consciousness: patient oriented x3 Limitations: no limitations HEENT: Head: Yes normal to inspection Ears: hearing grossly normal bilaterally Eyes: Sclerae: sclerae normal Pupils: Equal, round and reactive pupils present Neck: Neck: Yes normal visual inspection Chest: Chest palpation & inspection: normal inspection of the chest Resp: Effort & Inspection: normal respiratory effort Auscultation: clear to auscultation bilaterally Cardio: Palpation: normal PMI Rate: regular rate Rhythm: regular rhythm Heart sounds: S1 normal heart sound present, S2 normal heart sound present and no murmurs GI: Palpation (GI): Soft to palpation, nontender and No hepatosplenomegaly present Auscultation: normal bowel sounds Rectal Exam - Female: deferred Skin: General skin exam: no rashes or lesions noted Neuro: General: patient oriented x3, gait normal and moves all extremities Cranial nerves: Yes Equal, round and reactive pupils present Extrem: General: Yes no pedal edema and Yes other (fine tremors of both hands) Psych: Appearance: grossly normal Mental Status: mental status grossly normal Speech and movement: Psychomotor agitation in speech present Affect: Anxious affect present Results Labs CBC & Chem 7: 12/20/21 05:42 12/19/21 16:36 Labs: Short CBC 12/19/21 12/20/21 Range/Units 16:36 05:42 WBC 2.4 L 2.3 L (4.8-10.8) X10*3/uL Hgb 12.9 11.2 L (12.0-16.0) g/dl Hct 35.7 L 31.4 L (37.0-47.0) % Plt Count 11 L* 17 L* D (160-400) X10*3/uL BMP 12/19/21 16:36 Sodium 135 Potassium 3.8 Chloride 88 L Carbon Dioxide 27 BUN 15 Creatinine 0.73 Calcium 8.4 Liver Function 12/19/21 12/20/21 Range/Units 16:36 05:42 Total Bilirubin 2.1 H 1.8 H (0.0-1.0) mg/dL Direct Bilirubin 1.4 H 1.1 H (0.0-0.5) mg/dL AST 795 H 664 H (5-31) U/L ALT 275 H 234 H (0-31) U/L Alkaline Phosphatase 165 H 154 H (39-117) U/L Albumin 4.5 4.0 (3.5-5.0) g/dL Urine 12/19/21 Range/Units 15:09 Urine Color YELLOW Urine Appearance HAZY Urine pH 5.5 (5.0-8.0) Ur Specific Lima >= 1.030 H (1.005-1.025) Urine Protein 1+ H (NEG-TRACE) MG/DL Urine Glucose (UA) NEG (NEG) MG/DL Assessment and Plan (1) Alcoholic intoxication: Status: Acute (2) Thrombocytopenia: Status: Acute (3) Elevated LFTs: Status: Acute Plan 36 YF with hx of ETOH abuse and thrombocytopenia admitted to [facility] with acute alcohol intoxication and nose bleeds Patient complains of poor appetite with intermittent nausea and vomiting (yellow fluid) for the past few days. She has noted loose stools for the past week. PO intake has been poor and she thinks she may have lost some weight. Pt has been drinking intermittently since age 21 - can drink upto a box of wine in a day. LFTs were elevated (cw alcoholic hepatitis) on admission and have improved on repeat labs today Hepatic synthetic function is normal. Maddrey discriminant function is 4 and steroid treatment is not indicated. Pt has pancytopenia with low platelets (likely due to BM suppression from ETOH) Normocytic normochromic anemia likely a combination of BM suppression and nutritional due to poor PO intake. RECOMMENDATIONS: 1. Check LFTs daily 2. Hepatitis serologies, iron studies and Vitamin D and Zinc levels - order placed. 3. Phenobarbital protocol for ETOH withdrwal 4. Pt expressed interest in ETOH rehab to help her quit drinking. Procedures Date of Service Date of Service: 12/20/21
--- NOTE | 2021-12-20 08:17 | P.PNIM_ITS ---
Subjective Subjective Date of Service: 12/20/21 Interval History: thrombocytopenia,alcohol withdrawal. Review of Systems Patient still feel tremulous, anxious Denies any chest pain or shortness of breath or abdominal pain or fever chills Physical Exam Vital Signs: Vital Signs: Last Vital Signs Temp 98.5 F 12/20/21 05:46 Pulse 107 H 12/20/21 07:41 Resp 17 12/20/21 07:41 BP 117/74 12/20/21 07:41 Pulse Ox 98 12/20/21 07:41 BMI result Body Mass Index 20.3 Appearance: Alert.? Oriented X3.? not in distress.? cvs: rrr, [id number] res: clear to auscultation ,no rhonchii or wheezing abd: no rebound or guarding ,nt, bs present. ext pulses present , no cyanosis. neuro: axo3 , nonfocal. Has tremor, anxious. Objective Data Active Medications Gabapentin (Gabapentin 300 Mg Capsule) 600 mg PO TID [facility] Dextrose/Sodium Chloride (D51/2ns) 1,000 mls @ 125 mls/hr IVCONT .Q8H [facility] Last Admin: 12/19/21 22:38 Dose: Not Given Documented by: INGA-SHAKEELICL Non-Admin Reason: IV Running Dextrose/Sodium Chloride (D51/2ns) 1,000 mls @ 100 mls/hr IVCONT .Q10H [facility] Last Admin: 12/19/21 22:58 Dose: 100 mls/hr Documented by: INGA-ANICL Melatonin (Melatonin 3 Mg Tablet) 6 mg PO BEDTIME PRN PRN Reason: Insomnia Multivitamins/Vitamin C (Multivitamin Tablet) 1 tab PO DAILY [facility] Naltrexone HCl (Naltrexone Hcl 50 Mg Tablet) 50 mg PO DAILY [facility] Pharmacy Consult (Consult Rx Perform Med Rec) 1 each MISCELLANE ONCE PRN PRN Reason: Consult order Pharmacy Consult (Consult Rx Etoh Phenob Po Dose) 1 each MISCELLANE ONCE PRN; Protocol PRN Reason: Consult order Phenobarbital (Phenobarbital 15 Mg Tablet) 45 mg PO BID [facility] Stop: 12/21/21 21:01 Last Admin: 12/20/21 08:14 Dose: Not Given Documented by: SHILOH Non-Admin Reason: Patient Refused Phenobarbital (Phenobarbital 15 Mg Tablet) 15 mg PO BID [facility] Stop: 12/23/21 21:01 Phenobarbital (Phenobarbital 15 Mg Tablet) 15 mg PO DAILY [facility] Stop: 12/25/21 09:01 Sodium Chloride (0.9 % Sodium Chloride Flush 3 Ml Syringe) 3 ml IVFLUSH QSHIFT [facility] Last Admin: 12/19/21 23:01 Dose: Not Given Documented by: EMILEANICL Non-Admin Reason: IV Running Thiamine HCl (Thiamine Hcl 100 Mg Tablet) 100 mg PO DAILY [facility] Stop: 12/22/21 09:01 Labs CBC & Chem 7: 12/20/21 05:42 12/19/21 16:36 Labs: Laboratory Results - last 24 hr 12/19/21 12/19/21 12/19/21 15:09 15:09 15:13 MCV MCH MCHC RDW Plt Count MPV Immature Gran % (Auto) Neut % (Auto) Lymph % (Auto) [place] % (Auto) Eos % (Auto) Baso % (Auto) Lymph # (Auto) [place] # (Auto) Eos # (Auto) Baso # (Auto) Abs Immat Gran (auto) Absolute Neuts (auto) Absolute Nucleated RBC Nucleated RBC % (auto) Smear Tech's Comments PT INR APTT Anion Gap Estim Creat Clear Calc Estimated GFR Random Glucose Calcium Magnesium Total Bilirubin Direct Bilirubin AST ALT Alkaline Phosphatase Total Protein Albumin Vitamin B12 Folate TSH Urine Color YELLOW Urine Appearance HAZY Urine pH 5.5 Ur Specific Rosser >= 1.030 H Urine Protein 1+ H Urine Glucose (UA) NEG Urine Ketones 15 Urine Blood 2+ H Urine Nitrite NEG Ur Leukocyte Esterase TRACE H Urine RBC 0-2 Urine WBC 1-4 Ur Squamous Epith Cells 2+ Urine Bacteria 4+ Urine Test NEGATIVE Urine Opiates Screen Not Detected Urine Fentanyl Screen Not Detected Ur Barbiturates Screen Not Detected Ur Phencyclidine Scrn Not Detected Ur Amphetamines Screen Not Detected U Benzodiazepines Scrn Not Detected Urine Cocaine Screen Not Detected U Marijuana (THC) Screen Not Detected Ethyl Alcohol Acetone, Qual COVID-19 (TERRELL) COVID-19 Clin Com Influenza Type A (BIJAL) Influenza Type B (BIJAL) Influenza A & B Note Blood Type Antibody Screen 12/19/21 12/19/21 12/19/21 15:21 16:36 16:36 MCV 86.7 MCH 31.3 MCHC 36.1 H RDW 13.2 Plt Count 11 L* MPV 10.1 Immature Gran % (Auto) 1.7 H Neut % (Auto) 61.0 Lymph % (Auto) 31.4 [place] % (Auto) 5.9 Eos % (Auto) 0.0 Baso % (Auto) 0.0 Lymph # (Auto) 0.7 L [place] # (Auto) 0.1 Eos # (Auto) 0.0 Baso # (Auto) 0.0 Abs Immat Gran (auto) 0.04 H Absolute Neuts (auto) 1.4 L Absolute Nucleated RBC 0.020 H Nucleated RBC % (auto) 0.8 H Smear Tech's Comments VERIFIED PT INR APTT Anion Gap 24 H Estim Creat Clear Calc 99.1 Estimated GFR > 60 Random Glucose 80 Calcium 8.4 Magnesium Total Bilirubin 2.1 H Direct Bilirubin 1.4 H AST 795 H ALT 275 H Alkaline Phosphatase 165 H Total Protein 7.8 Albumin 4.5 Vitamin B12 Folate TSH Urine Color Urine Appearance Urine pH Ur Specific Rosser Urine Protein Urine Glucose (UA) Urine Ketones Urine Blood Urine Nitrite Ur Leukocyte Esterase Urine RBC Urine WBC Ur Squamous Epith Cells Urine Bacteria Urine Test Urine Opiates Screen Urine Fentanyl Screen Ur Barbiturates Screen Ur Phencyclidine Scrn Ur Amphetamines Screen U Benzodiazepines Scrn Urine Cocaine Screen U Marijuana (THC) Screen Ethyl Alcohol Acetone, Qual COVID-19 (TERRELL) Negative COVID-19 Clin Com See Note Influenza Type A (BIJAL) Influenza Type B (BIJAL) Influenza A & B Note Blood Type Antibody Screen 12/19/21 12/19/21 12/19/21 16:36 16:36 16:36 MCV MCH MCHC RDW Plt Count MPV Immature Gran % (Auto) Neut % (Auto) Lymph % (Auto) [place] % (Auto) Eos % (Auto) Baso % (Auto) Lymph # (Auto) [place] # (Auto) Eos # (Auto) Baso # (Auto) Abs Immat Gran (auto) Absolute Neuts (auto) Absolute Nucleated RBC Nucleated RBC % (auto) Smear Tech's Comments PT INR APTT Anion Gap Estim Creat Clear Calc Estimated GFR Random Glucose Calcium Magnesium 2.4 Total Bilirubin Direct Bilirubin AST ALT Alkaline Phosphatase Total Protein Albumin Vitamin B12 Folate TSH 0.68 Urine Color Urine Appearance Urine pH Ur Specific Rosser Urine Protein Urine Glucose (UA) Urine Ketones Urine Blood Urine Nitrite Ur Leukocyte Esterase Urine RBC Urine WBC Ur Squamous Epith Cells Urine Bacteria Urine Test Urine Opiates Screen Urine Fentanyl Screen Ur Barbiturates Screen Ur Phencyclidine Scrn Ur Amphetamines Screen U Benzodiazepines Scrn Urine Cocaine Screen U Marijuana (THC) Screen Ethyl Alcohol 438 H* Acetone, Qual Negative COVID-19 (TERRELL) COVID-19 Clin Com Influenza Type A (BIJAL) Negative Influenza Type B (BIJAL) Negative Influenza A & B Note See Note Blood Type Antibody Screen 12/19/21 12/19/21 12/19/21 16:36 19:16 19:16 MCV MCH MCHC RDW Plt Count MPV Immature Gran % (Auto) Neut % (Auto) Lymph % (Auto) [place] % (Auto) Eos % (Auto) Baso % (Auto) Lymph # (Auto) [place] # (Auto) Eos # (Auto) Baso # (Auto) Abs Immat Gran (auto) Absolute Neuts (auto) Absolute Nucleated RBC Nucleated RBC % (auto) Smear Tech's Comments PT 11.5 INR 1.0 APTT 34.3 Anion Gap Estim Creat Clear Calc Estimated GFR Random Glucose Calcium Magnesium Total Bilirubin Direct Bilirubin AST ALT Alkaline Phosphatase Total Protein Albumin Vitamin B12 1217 H Folate > 20.0 TSH Urine Color Urine Appearance Urine pH Ur Specific Rosser Urine Protein Urine Glucose (UA) Urine Ketones Urine Blood Urine Nitrite Ur Leukocyte Esterase Urine RBC Urine WBC Ur Squamous Epith Cells Urine Bacteria Urine Test Urine Opiates Screen Urine Fentanyl Screen Ur Barbiturates Screen Ur Phencyclidine Scrn Ur Amphetamines Screen U Benzodiazepines Scrn Urine Cocaine Screen U Marijuana (THC) Screen Ethyl Alcohol Acetone, Qual COVID-19 (TERRELL) COVID-19 Clin Com Influenza Type A (BIJAL) Influenza Type B (BIJAL) Influenza A & B Note Blood Type O Positive Antibody Screen NEGATIVE 12/20/21 12/20/21 05:42 05:42 MCV 86.7 MCH 30.9 MCHC 35.7 H RDW 13.1 Plt Count 17 L* D MPV 8.9 L Immature Gran % (Auto) 0.9 H Neut % (Auto) 55.2 Lymph % (Auto) 34.3 Ch[place]ot % (Auto) 9.6 Eos % (Auto) 0.0 Baso % (Auto) 0.0 Lymph # (Auto) 0.8 L [place] # (Auto) 0.2 Eos # (Auto) 0.0 Baso # (Auto) 0.0 Abs Immat Gran (auto) 0.02 Absolute Neuts (auto) 1.3 L Absolute Nucleated RBC 0.000 Nucleated RBC % (auto) 0.0 Smear Tech's Comments VERIFIED PT INR APTT Anion Gap Estim Creat Clear Calc Estimated GFR Random Glucose Calcium Magnesium Total Bilirubin 1.8 H Direct Bilirubin 1.1 H AST 664 H ALT 234 H Alkaline Phosphatase 154 H Total Protein 6.9 Albumin 4.0 Vitamin B12 Folate TSH Urine Color Urine Appearance Urine pH Ur Specific Rosser Urine Protein Urine Glucose (UA) Urine Ketones Urine Blood Urine Nitrite Ur Leukocyte Esterase Urine RBC Urine WBC Ur Squamous Epith Cells Urine Bacteria Urine Test Urine Opiates Screen Urine Fentanyl Screen Ur Barbiturates Screen Ur Phencyclidine Scrn Ur Amphetamines Screen U Benzodiazepines Scrn Urine Cocaine Screen U Marijuana (THC) Screen Ethyl Alcohol Acetone, Qual COVID-19 (TERRELL) COVID-19 Clin Com Influenza Type A (BIJAL) Influenza Type B (BIJAL) Influenza A & B Note Blood Type Antibody Screen Assessment and Plan (1) Alcoholic intoxication: Status: Acute (2) Thrombocytopenia: Status: Acute (3) Elevated LFTs: Status: Acute Plan 36 year old female with alcohol dependency here with alcohol intoxiciation, at risk for withdrawal, possible alcoholic gastritis and thrombocytopenia 1.Alcohol dependence/risk of withdrawal -Start Phenobarbital protocol -Thiamine Supplement, Folate is normal -GI eval-labs added, LFTs improving Added initial dose of withdrawal due to anxiety symptoms. 2.Alcoholic hepatitis, Kenyatta discriminant function is 4.4 which confer good prognosis, no indication for steroid 3.Thrombocytopenia--likely d/t alcholic liver disease--had no bleed earlier but presently no bleed. given platlets Transfuse 1 unit-latlet improved to 17 pt/inr normal -Hematolggy consult pending Inpatient stay: Alcohol withdrawal, severe thrombocytopenia Quality Stroke Does the patient have a stroke diagnosis?: No VTE Prior VTE?: No VTE Risk Level:: Medical - low VTE Device Contraindication: Treatment Not Indicated VTE Drug Contraindication: Treatment Not Indicated
--- NOTE | 2021-12-20 08:48 | PC.NURSE ---
awaiting md to meet with pt to discuss meds
[2021-12-20] MEDS: Gabapentin 300 MG CAPSULE 600 MG PO ×3 (09:33→20:15)
[2021-12-20] MEDS: Thiamine HCL 100 MG TABLET PO (09:33)
[2021-12-20] MEDS: Multivitamin TABLET 1 TAB PO (09:33)
[2021-12-20] MEDS: Naltrexone HCl 50 MG TABLET PO (09:43)
--- NOTE | 2021-12-20 10:12 | MHC.CM.PN ---
PT REPORTS SHE RECENTLY MOVED BACK FROM [place] AND IS NOW LIVING WITH HER PARENTS SHE DENIES USING DME OR HAVING HOME SERVICES SHE REPORTS SHE DOES NOT HAVE A PCP IN THE AREA YET SHE REPORTS SHE UNDERSTANDS THE PROCESS FOR OBTAINING ONE BASED ON HER INSURANCE PT REPORTS SHE HAS SIGNED A HCP IN THE PAST, COPY REQUESTED PT IS COVID-19 VACCINATED WITH MODERNA X 2 DCP TBD. HOME VS ETOH TREATMENT
--- NOTE | 2021-12-20 11:34 | PC.NURSE ---
hopsitalist just spoke with patient- willing to take pheno now
[2021-12-20] MEDS: PHENobarbitaL 15 MG TABLET 45 MG PO ×2 (12:08→20:15)
--- NOTE | 2021-12-20 13:14 | MHC.CARE ---
CARE Team attempted to meet with Pt who appeared to be resting. Recovery aware of Pt.
--- NOTE | 2021-12-20 14:59 | MHC.RECOVRN ---
Attempted to meet with pt in ED15, pt declined speaking at this time. Will follow up at another time. Pt provided with t/w contact information if needed.
--- NOTE | 2021-12-20 17:40 | PC.NURSE ---
pt requesting medication for withdrawl symptoms, admitting MD aware.
[2021-12-20] MEDS: Dextrose 5 % and 0.45 % NaCl 1,000 ML 100 ML IVCONT (20:15)
[2021-12-20] MEDS: ondansetron HCL 4 MG/2 ML VIAL IVPUSH (23:52)
--- NOTE | 2021-12-21 04:36 | PC.NURSE ---
Pt stated feeling nauseous around 2300, Dr. Demarco was notified, Zofran IV given, pt verbalized relief after.
[2021-12-21] MEDS: Dextrose 5 % and 0.45 % NaCl 1,000 ML 100 ML IVCONT ×2 (05:39→15:29)
[2021-12-21 07:13] VITALS: BP 115/78; PULSE 93; RESP 16; TEMP 36.9; O2SAT 97
[2021-12-21 07:13] LABS: PLT CLUMP 1
[2021-12-21 07:14] LABS: Hematocrit 32.9 % (37.0-47.0); Hemoglobin 11.6 g/dl (12.0-16.0); Mean Corpuscular HGB Conc 35.3 g/dl (31.0-35.0); Mean Corpuscular Hemoglobin 30.7 pg (27.0-33.0); Mean Platelet Volume 12.3 fL (9.4-12.3); Red Blood Count 3.78 X10*6/uL (4.20-5.50); Red Cell Distribution Width 12.6 % (11.0-16.0)
[2021-12-21 07:16] LABS: White Blood Count 2.4 X10*3/uL (4.8-10.8)
[2021-12-21 07:21] LABS: Platelet Count 14 X10*3/uL (160-400)
[2021-12-21 07:25] LABS: Iron 67 mcg/dL (30-160); Percent Iron Saturation 37 % (15-50); Total Iron Binding Capacity 180 mcg/dL (228-428); Unsaturated Iron Binding 113 ug/dL
[2021-12-21] MEDS: Multivitamin TABLET 1 TAB PO (07:44)
[2021-12-21] MEDS: Naltrexone HCl 50 MG TABLET PO (07:45)
[2021-12-21] MEDS: Thiamine HCL 100 MG TABLET PO (07:45)
[2021-12-21] MEDS: Gabapentin 300 MG CAPSULE 600 MG PO ×3 (07:45→21:42)
[2021-12-21 07:46] LABS: Vitamin D 25-OH Total 30.7 ng/mL (>30)
[2021-12-21] MEDS: PHENobarbitaL 15 MG TABLET 45 MG PO ×2 (07:46→21:42)
--- NOTE | 2021-12-21 08:02 | P.PNIM_ITS ---
Subjective Subjective Date of Service: 12/21/21 Interval History: Pancytopenia, alcohol withdrawal Review of Systems Patient is still feel anxious, has tremors also Denies any chest pain or shortness of breath or abdominal pain or fever chills Physical Exam Vital Signs: Vital Signs: Last Vital Signs Temp 98.4 F 12/21/21 07:13 Pulse 93 12/21/21 07:13 Resp 16 12/21/21 07:13 BP 115/78 12/21/21 07:13 Pulse Ox 97 12/21/21 07:13 BMI result Body Mass Index 20.3 Appearance: Alert.? Oriented X3.? not in distress.? cvs: rrr, [id number] res: clear to auscultation ,no rhonchii or wheezing abd: no rebound or guarding ,nt, bs present. ext pulses present , no cyanosis. neuro: axo3 , nonfocal.? Has tremor, anxious. Objective Data Active Medications Gabapentin (Gabapentin 300 Mg Capsule) 600 mg PO TID [facility] Last Admin: 12/21/21 07:45 Dose: 600 mg Documented by: ERICKA Dextrose/Sodium Chloride (D51/2ns) 1,000 mls @ 100 mls/hr IVCONT .Q10H [facility] Last Admin: 12/21/21 05:39 Dose: 100 mls/hr Documented by: KIKE Melatonin (Melatonin 3 Mg Tablet) 6 mg PO BEDTIME PRN PRN Reason: Insomnia Multivitamins/Vitamin C (Multivitamin Tablet) 1 tab PO DAILY [facility] Last Admin: 12/21/21 07:44 Dose: 1 tab Documented by: ERICKA Naltrexone HCl (Naltrexone Hcl 50 Mg Tablet) 50 mg PO DAILY [facility] Last Admin: 12/21/21 07:45 Dose: 50 mg Documented by: ERICKA Pharmacy Consult (Consult Rx Perform Med Rec) 1 each MISCELLANE ONCE PRN PRN Reason: Consult order Pharmacy Consult (Consult Rx Etoh Phenob Po Dose) 1 each MISCELLANE ONCE PRN; Protocol PRN Reason: Consult order Phenobarbital (Phenobarbital 15 Mg Tablet) 45 mg PO BID [facility] Stop: 12/21/21 21:01 Last Admin: 12/21/21 07:46 Dose: 45 mg Documented by: ERICKA Phenobarbital (Phenobarbital 15 Mg Tablet) 15 mg PO BID [facility] Stop: 12/23/21 21:01 Phenobarbital (Phenobarbital 15 Mg Tablet) 15 mg PO DAILY [facility] Stop: 12/25/21 09:01 Sodium Chloride (0.9 % Sodium Chloride Flush 3 Ml Syringe) 3 ml IVFLUSH QSHIFT [facility] Last Admin: 12/21/21 07:46 Dose: Not Given Documented by: ERICKA Non-Admin Reason: IV Running Thiamine HCl (Thiamine Hcl 100 Mg Tablet) 100 mg PO DAILY [facility] Stop: 12/22/21 09:01 Last Admin: 12/21/21 07:45 Dose: 100 mg Documented by: ERICKA Labs CBC & Chem 7: 12/21/21 06:37 12/19/21 16:36 Labs: Laboratory Results - last 24 hr 12/19/21 12/21/21 12/21/21 16:36 06:37 06:37 MCV 87.0 MCH 30.7 MCHC 35.3 H RDW 12.6 Plt Count 14 L* MPV 12.3 Absolute Nucleated RBC 0.000 Nucleated RBC % (auto) 0.0 Smear Path Review SEE NOTE Iron 67 TIBC 180 L % Saturation 37 Unsat Iron Binding 113 25-OH Vitamin D Total 30.7 Assessment and Plan (1) Alcoholic intoxication: Status: Acute (2) Thrombocytopenia: Status: Acute (3) Elevated LFTs: Status: Acute Plan 36 year old female with alcohol dependency here with alcohol intoxiciation, at risk for withdrawal, possible alcoholic gastritis and thrombocytopenia 1.Alcohol dependence/risk of withdrawal -Start Phenobarbital protocol -Thiamine Supplement, Folate is normal -GI eval-serology pending, LFTs improving Added initial dose of withdrawal due to anxiety symptoms. 2.Alcoholic hepatitis, Kenyatta discriminant function is 4.4 which confer good prognosis, no indication for steroid. 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 given platlets Transfuse 1 unit-latlet improved to 17- today came down 14. pt/inr normal moniter cbc -Hematolggy consult pending Inpatient stay: Alcohol withdrawal, severe thrombocytopenia Quality Stroke Does the patient have a stroke diagnosis?: No VTE Prior VTE?: No VTE Risk Level:: Medical - low VTE Device Contraindication: Treatment Not Indicated VTE Drug Contraindication: Treatment Not Indicated
[2021-12-21 08:03] LABS: Alanine Aminotransferase 192 U/L (0-31); Albumin Level 3.7 g/dL (3.5-5.0); Alkaline Phosphatase 172 U/L (39-117); Aspartate Amino Transferase 476 U/L (5-31); Bilirubin Direct 1.3 mg/dL (0.0-0.5); Bilirubin Total 2.1 mg/dL (0.0-1.0); Total Protein 6.6 g/dL (6.5-8.0)
--- NOTE | 2021-12-21 09:34 | MHC.CARE ---
CARE Team met with Pt secondary to consult placed for anxiety/ alcohol use. Pt currently does not report any acute mental health concerns. Pt reports she has been in this area for a wedding recently and had been staying at hotel consuming alcohol roughly the past two weeks. Pt stated she felt she was in withdrawal therefore came to the ED. Pt reports possible interest in providers when she returns home to [place]. Pt reports she will needs assistance getting back to [place] the [place]. Plan for recovery team to follow up with Pt prior to discharge.
--- NOTE | 2021-12-21 10:33 | MHC.RECOVSUP ---
Recovery Support note: Patient is a 36 year old Irish speaking female who presented to [facility] under the influence of alcohol and was medically admitted. This securities underwriter met with patient in 376 to discuss alcohol use and recovery supports. Patient expresses interest in maintaining sobriety, acknowledging the negative impact her alcohol use has had on her health. Patient reports binge drinking up to a box of wine at times. Discussed relapse prevention with patient. Discussed AA, medications for alcohol use disorder and IOP with patient. Patient has been on naltrexone before however reports she was unable to get the Vivitrol injection due to her lab values. Patient has completed an IOP and found it somewhat helpful however noted it was too short to be impactful. Patient is interested in outpatient therapy. This securities underwriter provided patient with a list of therapy agencies and IOPs in the [facility] area. In addition, education regarding [email or web address] was provided. Patient has contact information for Recovery Support Team in the event that she has any questions or concerns after discharge or while in the hospital.
[2021-12-21 11:49] VITALS: BP 105/72; PULSE 84; RESP 16; TEMP 36.6; O2SAT 99
--- NOTE | 2021-12-21 13:06 | PM.HEMONCPN ---
Medical Summary - Medical Summary Date of Service: 12/21/21 Chief complaint: pancytopenia Interval History Interval history: 36 year old woman awaiting hematology consultation from Dr. Cuevas placed 12/19/2021. Likely has ethanol suppressed hematopoesis. Platelets increment to a platelet transfusion was minimal. Spleen was called unremarkable on abdominal CT. Review of Systems - Constitutional Reports anorexia - Eyes Reports dry eyes - ENT Reports other - Cardiovascular Reports shortness of breath causing sudden awakening - Respiratory Reports other - Gastrointestinal Reports abdominal pain - Genitourinary Reports other - Musculoskeletal Reports numbness - Neurologic Reports system reviewed and no additional complaints, except as documented [facility] Medical History: Medical History (Last Reviewed 12/19/21 @ 22:52 by Ki David MD) Alcohol dependence Thrombocythemia Social History: Social History (Last Reviewed 12/19/21 @ 22:52 by Ki David MD) Living Situation History: Household Members: Family Housing: House Do you presently have visiting nurse or other home services: No Tobacco History: Patient Tobacco Use Status: Never used Tobacco Occupation Assessmet: service: No Current occupational status: unemployed Home Medications and Allergies Current Medications: Current Medications Gabapentin (Gabapentin 300 Mg Capsule) 600 mg PO TID [facility] Last Admin: 12/21/21 07:45 Dose: 600 mg Documented by: Dextrose/Sodium Chloride (D51/2ns) 1,000 mls @ 100 mls/hr IVCONT .Q10H [facility] Last Admin: 12/21/21 05:39 Dose: 100 mls/hr Documented by: Melatonin (Melatonin 3 Mg Tablet) 6 mg PO BEDTIME PRN PRN Reason: Insomnia Multivitamins/Vitamin C (Multivitamin Tablet) 1 tab PO DAILY [facility] Last Admin: 12/21/21 07:44 Dose: 1 tab Documented by: Naltrexone HCl (Naltrexone Hcl 50 Mg Tablet) 50 mg PO DAILY [facility] Last Admin: 12/21/21 07:45 Dose: 50 mg Documented by: Pharmacy Consult (Consult Rx Perform Med Rec) 1 each MISCELLANE ONCE PRN PRN Reason: Consult order Pharmacy Consult (Consult Rx Etoh Phenob Po Dose) 1 each MISCELLANE ONCE PRN; Protocol PRN Reason: Consult order Phenobarbital (Phenobarbital 15 Mg Tablet) 45 mg PO BID [facility] Stop: 12/21/21 21:01 Last Admin: 12/21/21 07:46 Dose: 45 mg Documented by: Phenobarbital (Phenobarbital 15 Mg Tablet) 15 mg PO BID [facility] Stop: 12/23/21 21:01 Phenobarbital (Phenobarbital 15 Mg Tablet) 15 mg PO DAILY [facility] Stop: 12/25/21 09:01 Sodium Chloride (0.9 % Sodium Chloride Flush 3 Ml Syringe) 3 ml IVFLUSH QSHIFT [facility] Last Admin: 12/21/21 07:46 Dose: Not Given Documented by: Thiamine HCl (Thiamine Hcl 100 Mg Tablet) 100 mg PO DAILY [facility] Stop: 12/22/21 09:01 Last Admin: 12/21/21 07:45 Dose: 100 mg Documented by: Home Medications Medication Instructions Recorded Confirmed Type gabapentin 300 mg capsule 2 cap PO TID 12/19/21 12/19/21 History multivitamin 1 tab PO DAILY 12/19/21 12/19/21 History naltrexone 50 mg tablet 50 mg PO DAILY 12/19/21 12/19/21 History Allergies Allergy/AdvReac Type Severity Reaction Status Date / Time No Known Allergies Allergy Verified 12/19/21 14:34 Exam Vital signs: Vital Signs Temp 97.8 F 12/21/21 11:49 Pulse 84 12/21/21 11:49 Resp 16 12/21/21 11:49 BP 105/72 12/21/21 11:49 Pulse Ox 99 12/21/21 11:49 Intake & Output 12/20/21 12/21/21 12/21/21 18:59 06:59 18:59 Intake Total 1000 / 3060 2060 / 3060 Balance 1000 / 3060 2060 / 3060 Intake: Intake, Oral Amount 120 / 120 Intake, IV Amount 1000 / 2940 1940 / 2940 Dextrose 5 % and 0.45 % NaCl 1, 1000 / 2940 1940 / 2940 000 ml @ 100 mls/hr IVCONT . Q10H [facility] Rx#:[id number] Other: Meal Refused No NPO No Number of Unmeasured Voids 3 Urine Bathroom Last Bowel Movement 12/18/21 Stool Bathroom Weight 58.967 kg BMI result Body Mass Index 20.3 - Constitutional Present: no acute distress - Routine HEENT Exam Head: Present: atraumatic - Routine Respiratory Exam Present: decreased breath sounds - Routine Cardiovascular Exam Cardiovascular: Present: RRR - Routine Abdominal Exam Present: diminished bowel sounds - Routine Extremities Exam Present: full ROM Data - Labs CBC & Chem 7: 12/21/21 06:37 12/19/21 16:36 Labs: 12/19/21 15:09 Ur Preg Test Stat 12/19/21 15:10 Folic Acid 1 mg PO ONCE ONE Thiamine HCL [Vitamin B-1] 100 mg PO ONCE ONE 12/19/21 15:13 HERNANDEZ, Urine [Drug Screen Urine] Stat 12/19/21 15:15 Dextrose 5 % and 0.45 % NaCl [D51/2Ns] 1,000 ml IVCONT 125 mls/hr 12/19/21 15:21 COVID-19 ID NOW ([facility]) Stat 12/19/21 15:42 Regular Diet 12/19/21 16:36 Acetone, serum QL Stat Complete Blood Count Auto Diff Stat Comprehensive Met. Panel Stat Ethanol Stat Folate Stat Influenza A B2 ID NOW ([facility]) Stat Liver Panel Stat Magnesium Stat SLIDE REVIEW Stat Thyroid Stimulating Hormone Stat Vitamin B12 Stat 12/19/21 17:55 Add Laboratory Test Stat 12/19/21 18:26 LORazepam [Ativan] 1 mg IVPUSH ONCE ONE 12/19/21 19:12 CT abdomen pelvis wo con Stat 12/19/21 19:16 Pheresis Platelets Stat Type and Screen Stat Partial Thromboplastin Time Stat Prothrombin Time INR Stat 12/19/21 21:50 Intake and Output Q8HR 12/19/21 22:45 Phenobarbital 230 mg PO ONCE ONE 12/20/21 02:00 Phenobarbital 175 mg PO Q3H 12/20/21 05:42 Complete Blood Count Auto Diff AM Liver Panel DAILY@0600 SLIDE REVIEW Routine 12/20/21 18:00 Phenobarbital 175 mg PO ONCE ONE Phenobarbital 175 mg PO Q3H 12/20/21 23:37 ondansetron HCL [Zofran] 4 mg IVPUSH ONCE ONE 12/21/21 06:37 Add Laboratory Test Urgent CBC NO DIFF [Complete Blood Count no Diff] AM IRON PROFILE Routine Liver Panel Routine Vitamin D 25-OH Total Routine Laboratory Last Values WBC 2.4 X10*3/uL (4.8-10.8) L 12/21/21 06:37 RBC 3.78 X10*6/uL (4.20-5.50) L 12/21/21 06:37 Hgb 11.6 g/dl (12.0-16.0) L 12/21/21 06:37 Hct 32.9 % (37.0-47.0) L 12/21/21 06:37 MCV 87.0 fL (80.0-98.0) 12/21/21 06:37 MCH 30.7 pg (27.0-33.0) 12/21/21 06:37 MCHC 35.3 g/dl (31.0-35.0) H 12/21/21 06:37 RDW 12.6 % (11.0-16.0) 12/21/21 06:37 Plt Count 14 X10*3/uL (160-400) L* 12/21/21 06:37 MPV 12.3 fL (9.4-12.3) 12/21/21 06:37 Immature Gran % (Auto) 0.9 % (0.0-0.4) H 12/20/21 05:42 Neut % (Auto) 55.2 % (45-73) 12/20/21 05:42 Lymph % (Auto) 34.3 % (20-40) 12/20/21 05:42 [place] % (Auto) 9.6 % (2-11) 12/20/21 05:42 Eos % (Auto) 0.0 % (0-4) 12/20/21 05:42 Baso % (Auto) 0.0 % (0-2) 12/20/21 05:42 Lymph # (Auto) 0.8 X10*3/uL (1.2-4.9) L 12/20/21 05:42 [place] # (Auto) 0.2 X10*3/uL (0.1-1.2) 12/20/21 05:42 Eos # (Auto) 0.0 X10*3/uL (0.0-0.4) 12/20/21 05:42 Baso # (Auto) 0.0 X10*3/uL (0.0-0.2) 12/20/21 05:42 Abs Immat Gran (auto) 0.02 X10*3/uL (0.00-0.03) 12/20/21 05:42 Absolute Neuts (auto) 1.3 x10*3/uL (2.0-8.3) L 12/20/21 05:42 Absolute Nucleated RBC 0.000 X10*3/uL (0.0-0.012) 12/21/21 06:37 Nucleated RBC % (auto) 0.0 /100WBC (0.0-0.2) 12/21/21 06:37 Smear Tech's Comments VERIFIED 12/20/21 05:42 Smear Path Review SEE NOTE 12/19/21 16:36 PT 11.5 SEC (9.9-13.0) 12/19/21 19:16 INR 1.0 (0.9-1.1) 12/19/21 19:16 APTT 34.3 SEC (24.1-38.0) 12/19/21 19:16 Sodium 135 mmol/L (135-145) 12/19/21 16:36 Potassium 3.8 mmol/L (3.3-5.1) 12/19/21 16:36 Chloride 88 mmol/L (96-108) L 12/19/21 16:36 Carbon Dioxide 27 mmol/L (22-29) 12/19/21 16:36 Anion Gap 24 (12-20) H 12/19/21 16:36 BUN 15 mg/dL (9-16) 12/19/21 16:36 Creatinine 0.73 mg/dL (0.5-1.4) 12/19/21 16:36 Estim Creat Clear Calc 99.1 12/19/21 16:36 Estimated GFR > 60 12/19/21 16:36 Random Glucose 80 mg/dL (60-115) 12/19/21 16:36 Calcium 8.4 mg/dL (8.4-10.2) 12/19/21 16:36 Magnesium 2.4 mg/dL (1.6-2.6) 12/19/21 16:36 Iron 67 mcg/dL (30-160) 12/21/21 06:37 TIBC 180 mcg/dL (228-428) L 12/21/21 06:37 % Saturation 37 % (15-50) 12/21/21 06:37 Unsat Iron Binding 113 ug/dL 12/21/21 06:37 Total Bilirubin 2.1 mg/dL (0.0-1.0) H 12/21/21 06:37 Direct Bilirubin 1.3 mg/dL (0.0-0.5) H 12/21/21 06:37 AST 476 U/L (5-31) H 12/21/21 06:37 ALT 192 U/L (0-31) H 12/21/21 06:37 Alkaline Phosphatase 172 U/L (39-117) H 12/21/21 06:37 Total Protein 6.6 g/dL (6.5-8.0) 12/21/21 06:37 Albumin 3.7 g/dL (3.5-5.0) 12/21/21 06:37 Vitamin B12 1217 pg/mL (200-900) H 12/19/21 16:36 25-OH Vitamin D Total 30.7 ng/mL (>30) 12/21/21 06:37 Folate > 20.0 ng/mL (> or = 4.0) 12/19/21 16:36 TSH 0.68 uIU/mL (0.32-4.0) 12/19/21 16:36 Urine Color YELLOW 12/19/21 15:09 Urine Appearance HAZY 12/19/21 15:09 Urine pH 5.5 (5.0-8.0) 12/19/21 15:09 Ur Specific [place] >= 1.030 (1.005-1.025) H 12/19/21 15:09 Urine Protein 1+ MG/DL (NEG-TRACE) H 12/19/21 15:09 Urine Glucose (UA) NEG MG/DL (NEG) 12/19/21 15:09 Urine Ketones 15 MG/DL (NEG) 12/19/21 15:09 Urine Blood 2+ (NEG) H 12/19/21 15:09 Urine Nitrite NEG (NEG) 12/19/21 15:09 Ur Leukocyte Esterase TRACE (NEG) H 12/19/21 15:09 Urine RBC 0-2 /HPF (0) 12/19/21 15:09 Urine WBC 1-4 /HPF (0-4) 12/19/21 15:09 Ur Squamous Epith Cells 2+ /LPF 12/19/21 15:09 Urine Bacteria 4+ /LPF 12/19/21 15:09 Urine Test NEGATIVE (NEGATIVE) 12/19/21 15:09 Urine Opiates Screen Not Detected (Not Detect) 12/19/21 15:13 Urine Fentanyl Screen Not Detected (Not Detect) 12/19/21 15:13 Ur Barbiturates Screen Not Detected (Not Detect) 12/19/21 15:13 Ur Phencyclidine Scrn Not Detected (Not Detect) 12/19/21 15:13 Ur Amphetamines Screen Not Detected (Not Detect) 12/19/21 15:13 U Benzodiazepines Scrn Not Detected (Not Detect) 12/19/21 15:13 Urine Cocaine Screen Not Detected (Not Detect) 12/19/21 15:13 U Marijuana (THC) Screen Not Detected (Not Detect) 12/19/21 15:13 Ethyl Alcohol 438 mg/dL H* 12/19/21 16:36 Acetone, Qual Negative (Negative) 12/19/21 16:36 COVID-19 (TERRELL) Negative (Negative) 12/19/21 15:21 COVID-19 Clin Com See Note 12/19/21 15:21 Influenza Type A (BIJAL) Negative (Negative) 12/19/21 16:36 Influenza Type B (BIJAL) Negative (Negative) 12/19/21 16:36 Influenza A & B Note See Note 12/19/21 16:36 Blood Type O Positive 12/19/21 19:16 Antibody Screen NEGATIVE 12/19/21 19:16 - Imaging Radiologist's impression: ITS Impressions Abdomen/Pelvis CT 12/19/21 19:45 IMPRESSION: Significant diffuse fatty infiltration of the liver but no focal hepatic lesion nor biliary ductal dilatation. Air is seen in the nondependent portion the bladder. Etiology of this is uncertain. Infectious etiology/cystitis could have this appearance although I do not appreciate any lateral wall thickening. Clinical correlation and/or correlation with urinalysis would be recommended. Assessment and Plan Patient Active problem list reviewed?: Yes (1) Thrombocytopenia Status: Acute Assessment and plan: Recommend hematology consult after the weekend. Transfuse platelets if value less than 10,000 or acute bleeding. Will follow. - Time Spent With Patient Time Spent with Patient (in minutes): 20
[2021-12-21] MEDS: 0.9 % Sodium Chloride Flush 3 ML SYRINGE IVFLUSH ×2 (15:33→21:42)
[2021-12-21 15:39] VITALS: BP 119/73; PULSE 77; RESP 18; TEMP 36.1; O2SAT 98
[2021-12-21 19:28] VITALS: BP 117/76; PULSE 84; RESP 18; TEMP 36.6; O2SAT 99
[2021-12-21] MEDS: Melatonin 3 MG TABLET 6 MG PO (21:42)
[2021-12-22] VITALS: BP 116/77; PULSE 76; RESP 18; TEMP 36.6; O2SAT 98
[2021-12-22 03:24] VITALS: BP 110/74; PULSE 75; RESP 18; TEMP 36.8; O2SAT 92
[2021-12-22 07:24] LABS: Alanine Aminotransferase 195 U/L (0-31); Albumin Level 3.5 g/dL (3.5-5.0); Alkaline Phosphatase 178 U/L (39-117); Aspartate Amino Transferase 444 U/L (5-31); Bilirubin Direct 0.7 mg/dL (0.0-0.5); Bilirubin Total 1.5 mg/dL (0.0-1.0); Total Protein 6.6 g/dL (6.5-8.0)
[2021-12-22 07:32] LABS: Hematocrit 32.4 % (37.0-47.0); Hemoglobin 11.3 g/dl (12.0-16.0); Mean Corpuscular HGB Conc 34.9 g/dl (31.0-35.0); Mean Platelet Volume 12.6 fL (9.4-12.3); Red Blood Count 3.64 X10*6/uL (4.20-5.50); Red Cell Distribution Width 12.9 % (11.0-16.0); White Blood Count 2.3 X10*3/uL (4.8-10.8)
[2021-12-22 07:35] LABS: Platelet Count 18 X10*3/uL (160-400)
[2021-12-22 08:00] VITALS: BP 104/81; PULSE 95; RESP 20; TEMP 37; O2SAT 98
[2021-12-22] MEDS: 0.9 % Sodium Chloride Flush 3 ML SYRINGE IVFLUSH ×3 (10:03→20:43)
[2021-12-22] MEDS: Multivitamin TABLET 1 TAB PO (10:04)
[2021-12-22] MEDS: Thiamine HCL 100 MG TABLET PO (10:04)
[2021-12-22] MEDS: Naltrexone HCl 50 MG TABLET PO (10:04)
[2021-12-22] MEDS: Gabapentin 300 MG CAPSULE 600 MG PO ×3 (10:04→20:43)
[2021-12-22] MEDS: PHENobarbitaL 15 MG TABLET PO ×2 (10:05→20:43)
--- NOTE | 2021-12-22 11:04 | PM.HEMONCCN ---
Subjective - Subjective Chief complaint: Consult for: Thrombocytopenia. Patient: new to practice Consult date: 12/22/21 Requesting Physician: Celio. Primary Care Provider: None Physician Medical Summary: DIAGNOSIS: THROMBOCYTOPENIA. HPI - Consult Narrative Reason for consult: Consult for: Thrombocytopenia. 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 She presented with symptoms of being feeling sick with nausea and vomiting. She has had epistaxis. Denied any other evidence of bleeding. Her CBC: WBC 2.4, HGB 12.9, HCT 35.7, platelet count on presentation was 11. LFTs were high; 1.8/154/664/234. normal INR. Alochol level was 438. Patient denies any abdominal pain no rectal bleeding melena. There were no signs of alcohol withdrawal. [facility] Medical History: Alcohol dependence Thrombocyopenia patient was admitted to hospitals about 6 months ago and that time her platelet counts were 17,000. Family history: grand parents with alcholism Social History: She has been staying at a local hotel and was forced out by Police and sought detox. Review of Systems - Constitutional Reports system reviewed and no additional complaints, except as documented, Reports fatigue, Reports weakness, Reports weight loss, Denies fever(s) - Eyes Reports system reviewed and no additional complaints, except as documented - ENT Reports system reviewed and no additional complaints, except as documented, Reports epistaxis - Cardiovascular Reports system reviewed and no additional complaints, except as documented - Respiratory Reports no additional respiratory complaints - Gastrointestinal Reports system reviewed and no additional complaints, except as documented, Reports nausea, Reports vomiting - Genitourinary Reports no additional female genitourinary complaints - Musculoskeletal Reports system reviewed and no additional complaints, except as documented - Integumentary/Breasts Skin/Breast: Reports no additional skin complaints - Neurologic Reports system reviewed and no additional complaints, except as documented, Reports numbness - Psychiatric Reports system reviewed and no additional complaints, except as documented - Endocrine Reports no additional endocrine complaints - Hematologic/Lymphatic Reports system reviewed and no additional complaints, except as documented - Allergic/Immunologic Reports system reviewed and no additional complaints, except as documented [facility] Medical History: Medical History (Last Reviewed 12/19/21 @ 22:52 by Ki David MD) Alcohol dependence Thrombocythemia Social History: Social History (Last Reviewed 05/19/22 @ 22:52 by Ki David MD) Living Situation History: Household Members: Family Housing: House Do you presently have visiting nurse or other home services: No Tobacco History: Patient Tobacco Use Status: Never used Tobacco Occupation Assessmet: service: No Current occupational status: unemployed Home Medications and Allergies Current Medications: Current Medications Gabapentin (Gabapentin 300 Mg Capsule) 600 mg PO TID [facility] Last Admin: 12/22/21 10:04 Dose: 600 mg Documented by: Melatonin (Melatonin 3 Mg Tablet) 6 mg PO BEDTIME PRN PRN Reason: Insomnia Last Admin: 12/21/21 21:42 Dose: 6 mg Documented by: Multivitamins/Vitamin C (Multivitamin Tablet) 1 tab PO DAILY [facility] Last Admin: 12/22/21 10:04 Dose: 1 tab Documented by: Naltrexone HCl (Naltrexone Hcl 50 Mg Tablet) 50 mg PO DAILY [facility] Last Admin: 12/22/21 10:04 Dose: 50 mg Documented by: Pharmacy Consult (Consult Rx Perform Med Rec) 1 each MISCELLANE ONCE PRN PRN Reason: Consult order Pharmacy Consult (Consult Rx Etoh Phenob Po Dose) 1 each MISCELLANE ONCE PRN; Protocol PRN Reason: Consult order Phenobarbital (Phenobarbital 15 Mg Tablet) 15 mg PO BID [facility] Stop: 12/23/21 21:01 Last Admin: 12/22/21 10:05 Dose: 15 mg Documented by: Phenobarbital (Phenobarbital 15 Mg Tablet) 15 mg PO DAILY [facility] Stop: 12/25/21 09:01 Sodium Chloride (0.9 % Sodium Chloride Flush 3 Ml Syringe) 3 ml IVFLUSH QSHIFT [facility] Last Admin: 12/22/21 10:03 Dose: 3 ml Documented by: Home Medications Medication Instructions Recorded Confirmed Type gabapentin 300 mg capsule 2 cap PO TID 12/19/21 12/19/21 History multivitamin 1 tab PO DAILY 12/19/21 12/19/21 History naltrexone 50 mg tablet 50 mg PO DAILY 12/19/21 12/19/21 History Allergies Allergy/AdvReac Type Severity Reaction Status Date / Time No Known Allergies Allergy Verified 12/19/21 14:34 Physical Exam Vital signs: Vital Signs Temp 98.6 F 12/22/21 08:00 Pulse 95 12/22/21 08:00 Resp 20 12/22/21 08:00 BP 104/81 12/22/21 08:00 Pulse Ox 98 12/22/21 08:00 Intake & Output 12/21/21 12/22/21 12/22/21 18:59 06:59 18:59 Intake Total 983.333 / 2103.333 1120 / 2102.333 Balance 983.333 / 2103.333 1120 / 2102.333 Intake: Intake, Oral Amount 120 / 120 Intake, IV Amount 983.333 / 3743.614 0925 / 1982. Dextrose 5 % and 0.45 % NaCl 1, 983.333 / 9208.362 9965 / 1982.333 000 ml @ 100 mls/hr IVCONT . Q10H DIANA Rx#:[id number] Other: Dinner % Eaten 75% Number of Unmeasured Voids 1 Urine Bathroom Bathroom Stool Bathroom Weight 58.967 kg - Constitutional Present: mild distress - Routine HEENT Exam Head: Present: normal inspection ENT: Present: mucous membranes moist - Routine Neck Exam Present: supple - Routine Respiratory Exam Present: CTAB - Routine Cardiovascular Exam Cardiovascular: Present: RRR, S1, S2 - Routine Abdominal Exam Present: normal bowel sounds, tenderness - Routine Extremities Exam Present: nontender - Routine Skin Exam Present: intact - Routine Neurological Exam Present: alert, oriented X3 - Detailed Neurological Exam: Coma Scale Eye Opening: Spontaneous (4) Verbal Response: Oriented (5) Motor Response: Obeys commands (6) Tracy Coma Scale Total: 15 - Routine Psychiatric Exam Present: anxious Hem/Onc Consult Result - Labs CBC & Chem 7: 12/24/21 05:37 12/24/21 05:37 Labs: Short CBC 12/22/21 Range/Units 06:19 WBC 2.3 L (4.8-10.8) X10*3/uL Hgb 11.3 L (12.0-16.0) g/dl Hct 32.4 L (37.0-47.0) % Plt Count 18 L* (160-400) X10*3/uL Liver Function 12/22/21 Range/Units 06:19 Total Bilirubin 1.5 H (0.0-1.0) mg/dL Direct Bilirubin 0.7 H (0.0-0.5) mg/dL AST 444 H (5-31) U/L ALT 195 H (0-31) U/L Alkaline Phosphatase 178 H (39-117) U/L Albumin 3.5 (3.5-5.0) g/dL Assessment and Plan Patient Active problem list reviewed?: Yes (1) Thrombocytopenia Status: Acute Assessment and plan: 36-year-old lady who presented with nausea and vomiting and epistaxis. Noted to have thrombocytopenia and elevated LFTs. She does have a history of alcoholism. Has been actively drinking. DIFFERENTIAL DIAGNOSIS: 1. HYPERSPLENISM: Thrombocytopenia is most likely because of her liver disease and cirrhosis. 2. ITP: Is in the differential. 3. DRUG-INDUCED: Could be super added. 4. MYELO INFILTRATIVE DISORDER: MDS versus lymphoma versus multiple myeloma. Not likely. He received 1 dose of platelets. No obvious bleeding at present. CBC: WBC 2.3, HGB 11.3, HCT 32.4, PLT 18. LFTs: 1.5/178/444/195. LFTs are trending downwards. PLAN: The plan is to continue Supportive care. She is on the phenobarb protocol. Thiamine supplements. Monitor counts carefully. Continue oral PPI. Would try to avoid hepatotoxic medications. Would hold off on prednisone for now. Would transfuse platelets only if platelets drop to less than 10, or for bleeding. Thank you for this consult, Will follow along with you, Cc: - Time Spent With Patient Time Spent with Patient (in minutes): 30
[2021-12-22 12:00] VITALS: BP 119/81; PULSE 85; RESP 20; TEMP 36.4; O2SAT 98
--- NOTE | 2021-12-22 12:56 | HO.PM.IMPN ---
Subjective Subjective Date of Service: 12/22/21 Interval History: Pancytopenia, alcohol withdrawal Review of Systems seems less anxious ,has tremers Physical Exam Vital Signs: Vital Signs: Last Vital Signs Temp 97.6 F 12/22/21 12:00 Pulse 85 12/22/21 12:00 Resp 20 12/22/21 12:00 BP 119/81 12/22/21 12:00 Pulse Ox 98 12/22/21 12:00 BMI result Body Mass Index 20.3 Appearance: Alert.? Oriented X3.? not in distress.? cvs: rrr, [id number] res: clear to auscultation ,no rhonchii or wheezing abd: no rebound or guarding ,nt, bs present. ext pulses present , no cyanosis. neuro: axo3 , nonfocal.? Has tremor, anxious. Objective Data Active Medications Gabapentin (Gabapentin 300 Mg Capsule) 600 mg PO TID [facility] Last Admin: 12/22/21 10:04 Dose: 600 mg Documented by: ERICKA Melatonin (Melatonin 3 Mg Tablet) 6 mg PO BEDTIME PRN PRN Reason: Insomnia Last Admin: 12/21/21 21:42 Dose: 6 mg Documented by: ARISTIDES Multivitamins/Vitamin C (Multivitamin Tablet) 1 tab PO DAILY [facility] Last Admin: 12/22/21 10:04 Dose: 1 tab Documented by: ERICKA Naltrexone HCl (Naltrexone Hcl 50 Mg Tablet) 50 mg PO DAILY [facility] Last Admin: 12/22/21 10:04 Dose: 50 mg Documented by: ERICKA Pharmacy Consult (Consult Rx Perform Med Rec) 1 each MISCELLANE ONCE PRN PRN Reason: Consult order Pharmacy Consult (Consult Rx Etoh Phenob Po Dose) 1 each MISCELLANE ONCE PRN; Protocol PRN Reason: Consult order Phenobarbital (Phenobarbital 15 Mg Tablet) 15 mg PO BID [facility] Stop: 12/23/21 21:01 Last Admin: 12/22/21 10:05 Dose: 15 mg Documented by: ERICKA Phenobarbital (Phenobarbital 15 Mg Tablet) 15 mg PO DAILY [facility] Stop: 12/25/21 09:01 Sodium Chloride (0.9 % Sodium Chloride Flush 3 Ml Syringe) 3 ml IVFLUSH QSHIFT [facility] Last Admin: 12/22/21 10:03 Dose: 3 ml Documented by: ERICKA Labs CBC & Chem 7: 12/22/21 06:19 12/19/21 16:36 Labs: Laboratory Results - last 24 hr 12/22/21 12/22/21 06:19 06:19 MCV 89.0 MCH 31.0 MCHC 34.9 RDW 12.9 Plt Count 18 L* MPV 12.6 H Absolute Nucleated RBC 0.000 Nucleated RBC % (auto) 0.0 Total Bilirubin 1.5 H Direct Bilirubin 0.7 H AST 444 H ALT 195 H Alkaline Phosphatase 178 H Total Protein 6.6 Albumin 3.5 Assessment and Plan (1) Thrombocytopenia: Status: Acute (2) Elevated LFTs: Status: Acute Plan 36 year old female with alcohol dependency here with alcohol intoxiciation, at risk for withdrawal, possible alcoholic gastritis and thrombocytopenia 1.Alcohol dependence/risk of withdrawal -Start Phenobarbital protocol -Thiamine Supplement, Folate is normal -GI eval-serology pending, LFTs improving Added initial dose of withdrawal due to anxiety symptoms. 2.Alcoholic hepatitis, seen by GI- no indication for steroid. avoid heptotoxic medications lft's improving monier lft's, hepatitis serologies pendin 3.Thrombocytopenia--likely d/t alcholic liver disease--had no bleed earlier but presently no bleed. given platlets Transfuse 1 unit on admission platlets improving to 17- 14-18(today). pt/inr normal moniter cbc -Hematolggy consult noted-broad differential(please see hematology note): Recommended to monitor CBC. If platelets are below 10 or bleeding-may need transfusion. Inpatient stay:? Alcohol withdrawal, severe thrombocytopenia, elevated LFTs workup pending Quality Stroke Does the patient have a stroke diagnosis?: No VTE Prior VTE?: No VTE Risk Level:: Medical - low VTE Device Contraindication: Treatment Not Indicated VTE Drug Contraindication: Treatment Not Indicated
[2021-12-22] MEDS: Loratadine 10 MG TABLET PO (14:19)
[2021-12-22] MEDS: Famotidine 20 MG TABLET PO (14:19)
[2021-12-22] MEDS: Artificial Tears 15 ML DROPS 1 DROP EYE-BOTH ×2 (14:19→16:54)
[2021-12-22 15:26] VITALS: BP 119/79; PULSE 75; RESP 18; TEMP 36.3; O2SAT 98
[2021-12-22 20:00] VITALS: BP 119/76; PULSE 100; RESP 18; TEMP 36.2; O2SAT 99
[2021-12-23] VITALS (7 sets, daily range): BP systolic 111–123; BP diastolic 74–86; PULSE 75–92; RESP 17–18; TEMP 36.2–37.1; O2SAT 98–100
[2021-12-23 04:00] LABS: HBS Num1 > 1000.00 mIU/mL (0-7.99); HBc Num1 0.09 S/CO (0.00-0.79); HBsAGNum1 0.14 S/CO (0.00-0.99); Hepatitis B Core Antibody Nonreactive (Nonreactive); Hepatitis B Surface Antigen Negative (Negative); ~HepC Num1 0.09 S/CO (0.00-0.79); ~Hepatitis B Surface Antibody REACTIVE (Nonreactive); ~Hepatitis C Antibody Nonreactive (Nonreactive)
[2021-12-23 06:33] LABS: Folate 16.6 ng/mL (> or = 4.0); Vitamin B12 1017 pg/mL (200-900)
[2021-12-23] MEDS: Loratadine 10 MG TABLET PO (09:51)
[2021-12-23] MEDS: PHENobarbitaL 15 MG TABLET PO ×2 (09:51→21:18)
[2021-12-23] MEDS: Naltrexone HCl 50 MG TABLET PO (09:51)
[2021-12-23] MEDS: 0.9 % Sodium Chloride Flush 3 ML SYRINGE IVFLUSH ×3 (09:51→21:18)
[2021-12-23] MEDS: Multivitamin TABLET 1 TAB PO (09:52)
[2021-12-23] MEDS: Gabapentin 300 MG CAPSULE 600 MG PO ×3 (09:52→21:18)
[2021-12-23] MEDS: Famotidine 20 MG TABLET PO (09:52)
[2021-12-23] MEDS: Artificial Tears 15 ML DROPS 1 DROP EYE-BOTH ×2 (09:53→21:18)
[2021-12-23 09:57] LABS: Hematocrit 34.7 % (37.0-47.0); Hemoglobin 12.1 g/dl (12.0-16.0); Mean Corpuscular HGB Conc 34.9 g/dl (31.0-35.0); Mean Corpuscular Hemoglobin 30.9 pg (27.0-33.0); Mean Corpuscular Volume 88.7 fL (80.0-98.0); Mean Platelet Volume 11.5 fL (9.4-12.3); Red Blood Count 3.91 X10*6/uL (4.20-5.50); Red Cell Distribution Width 13.1 % (11.0-16.0)
[2021-12-23 09:58] LABS: White Blood Count 2.2 X10*3/uL (4.8-10.8)
[2021-12-23 10:08] LABS: Platelet Count 20 X10*3/uL (160-400)
[2021-12-23 10:34] LABS: Alanine Aminotransferase 245 U/L (0-31); Albumin Level 3.8 g/dL (3.5-5.0); Alkaline Phosphatase 201 U/L (39-117); Anion Gap 12 (12-20); Aspartate Amino Transferase 465 U/L (5-31); Bilirubin Direct 0.9 mg/dL (0.0-0.5); Bilirubin Total 1.5 mg/dL (0.0-1.0); Blood Urea Nitrogen 7 mg/dL (9-16); Calcium 9.3 mg/dL (8.4-10.2); Carbon Dioxide 29 mmol/L (22-29); Chloride 97 mmol/L (96-108); Creatinine Clr Calc Pharmacy 111.4; Estimated Glomerular Filt Rate > 60; Glucose Random 131 mg/dL (60-115); Potassium 2.8 mmol/L (3.3-5.1); Sodium 134 mmol/L (135-145); Total Protein 6.7 g/dL (6.5-8.0)
[2021-12-23 11:58] LABS: Magnesium 2.1 mg/dL (1.6-2.6)
[2021-12-23] MEDS: Potassium Chloride Packet 20 MEQ PACKET 40 MEQ PO (12:08)
[2021-12-23] MEDS: Potassium Chloride/H20 10 MEQ/100 ML PIGGYBACK 100 MEQ IV ×2 (12:09→13:24)
--- NOTE | 2021-12-23 13:16 | HO.PM.IMPN ---
Subjective Subjective Date of Service: 12/23/21 Interval History: elevated Lft' ,thrombocytopenia Review of Systems Alcohol withdrawal bucio seems improving Thrombocytopenia-seems improving also Denies any bleeding or nausea or vomiting or shortness of breath or chest pain. LFTs in the same range from last 2days. seems less anxious ,has tremers Physical Exam Vital Signs: Vital Signs: Last Vital Signs Temp 97.1 F 12/23/21 12:00 Pulse 83 12/23/21 12:00 Resp 18 12/23/21 12:00 BP 119/84 12/23/21 12:00 Pulse Ox 98 12/23/21 12:00 BMI result Body Mass Index 20.3 Appearance: Alert.? Oriented X3.? not in distress.? cvs: rrr, [id number] res: clear to auscultation ,no rhonchii or wheezing abd: no rebound or guarding ,nt, bs present. ext pulses present , no cyanosis. neuro: axo3 , nonfocal.? Has tremor, anxious. Objective Data Active Medications Artificial Tears (Artificial Tears 15 Ml Drops) 1 drop EYE-BOTH Q4H [facility] Last Admin: 12/23/21 09:53 Dose: 1 drop Documented by: ERICKA Famotidine (Famotidine 20 Mg Tablet) 20 mg PO DAILY [facility] Last Admin: 12/23/21 09:52 Dose: 20 mg Documented by: ERICKA Gabapentin (Gabapentin 300 Mg Capsule) 600 mg PO TID [facility] Last Admin: 12/23/21 09:52 Dose: 600 mg Documented by: ERICKA Potassium Chloride () 10 meq in 100 mls @ 100 mls/hr IV Q1H [facility] Stop: 12/23/21 13:44 Last Admin: 12/23/21 12:09 Dose: 100 mls/hr Documented by: ERICKA Loratadine (Loratadine 10 Mg Tablet) 10 mg PO DAILY [facility] Last Admin: 12/23/21 09:51 Dose: 10 mg Documented by: ERICKA Melatonin (Melatonin 3 Mg Tablet) 6 mg PO BEDTIME PRN PRN Reason: Insomnia Last Admin: 12/21/21 21:42 Dose: 6 mg Documented by: ARISTIDES Multivitamins/Vitamin C (Multivitamin Tablet) 1 tab PO DAILY [facility] Last Admin: 12/23/21 09:52 Dose: 1 tab Documented by: ERICKA Naltrexone HCl (Naltrexone Hcl 50 Mg Tablet) 50 mg PO DAILY [facility] Last Admin: 12/23/21 09:51 Dose: 50 mg Documented by: ERICKA Pharmacy Consult (Consult Rx Perform Med Rec) 1 each MISCELLANE ONCE PRN PRN Reason: Consult order Pharmacy Consult (Consult Rx Etoh Phenob Po Dose) 1 each MISCELLANE ONCE PRN; Protocol PRN Reason: Consult order Phenobarbital (Phenobarbital 15 Mg Tablet) 15 mg PO BID [facility] Stop: 12/23/21 21:01 Last Admin: 12/23/21 09:51 Dose: 15 mg Documented by: ERICKA Phenobarbital (Phenobarbital 15 Mg Tablet) 15 mg PO DAILY [facility] Stop: 12/25/21 09:01 Sodium Chloride (0.9 % Sodium Chloride Flush 3 Ml Syringe) 3 ml IVFLUSH QSHIFT [facility] Last Admin: 12/23/21 09:51 Dose: 3 ml Documented by: ERICKA Labs CBC & Chem 7: 12/23/21 09:46 12/23/21 09:46 Labs: Laboratory Results - last 24 hr 12/21/21 12/21/21 12/23/21 06:37 06:37 09:46 MCV 88.7 MCH 30.9 MCHC 34.9 RDW 13.1 Plt Count 20 L* MPV 11.5 Absolute Nucleated RBC 0.000 Nucleated RBC % (auto) 0.0 Anion Gap Estim Creat Clear Calc Estimated GFR Random Glucose Calcium Magnesium Total Bilirubin Direct Bilirubin AST ALT Alkaline Phosphatase Total Protein Albumin Vitamin B12 1017 H Folate 16.6 Hep Bs Antigen Negative Hep Bs Antibody REACTIVE Hep B Core Total Ab Nonreactive Hepatitis C Ab (EIA) Nonreactive 12/23/21 09:46 MCV MCH MCHC RDW Plt Count MPV Absolute Nucleated RBC Nucleated RBC % (auto) Anion Gap 12 Estim Creat Clear Calc 111.4 Estimated GFR > 60 Random Glucose 131 H Calcium 9.3 D Magnesium 2.1 Total Bilirubin 1.5 H Direct Bilirubin 0.9 H AST 465 H ALT 245 H Alkaline Phosphatase 201 H Total Protein 6.7 Albumin 3.8 Vitamin B12 Folate Hep Bs Antigen Hep Bs Antibody Hep B Core Total Ab Hepatitis C Ab (EIA) Assessment and Plan (1) Thrombocytopenia: Status: Acute (2) Elevated LFTs: Status: Acute (3) Alcoholic intoxication: Status: Acute Plan 36 year old female with alcohol dependency here with alcohol intoxiciation, at risk for withdrawal, possible alcoholic gastritis and thrombocytopenia 1.Alcohol dependence/risk of withdrawal -Start Phenobarbital protocol -Thiamine Supplement, Folate is normal -GI eval-serology , LFTs improving but similar range Added initial dose of withdrawal due to anxiety symptoms. 2.Alcoholic hepatitis, seen by GI- no indication for steroid. avoid heptotoxic medications lft's improving monier lft's, hepatitis serologies -heaptitis A -serology pending HepatitisB surface antigen-neg Hepatitis-B surface antibody reactive, hepatitis-B surface core antibody nonreactive. Hepatic C(EIA): Nonreactive. need Gi followup -since lfts's still eleavted. 3.Thrombocytopenia--likely d/t alcholic liver disease--had no bleed earlier but presently no bleed. given platlets Transfuse 1 unit on admission platlets? improving to 17- 14-18-20(today). pt/inr normal moniter cbc -Hematolggy consult noted-broad differential(please see hematology note):? Recommended to monitor CBC. If platelets are below 10 or bleeding-may need transfusion. Inpatient stay:? Alcohol withdrawal, severe thrombocytopenia, elevated LFTs workup pendin Quality Stroke Does the patient have a stroke diagnosis?: No VTE Prior VTE?: No VTE Risk Level:: Medical - low VTE Device Contraindication: Treatment Not Indicated VTE Drug Contraindication: Treatment Not Indicated
--- NOTE | 2021-12-23 14:32 | PM.EVENT ---
Event Note Date of Service: 12/23/21 Event Note: Pt states she is feeling better. Appetite is good - does not like hospital food. Denies taking acetaminophen - usually takes Motrin LFTs show improvement in total bilirubin and AST with slight worsening of ALT and AP RECOMMENDATIONS: 1. Abdominal US to rule out biliary source. 2. Additional labs ordered to rule out metabolic causes of liver disease
[2021-12-24 03:59] VITALS: BP 111/74; PULSE 84; RESP 18; TEMP 37.3; O2SAT 98
[2021-12-24 06:01] LABS: Mean Platelet Volume 10.1 fL (9.4-12.3); PLT CLUMP 1
[2021-12-24 06:03] LABS: Hematocrit 34.5 % (37.0-47.0); Hemoglobin 11.7 g/dl (12.0-16.0); Mean Corpuscular HGB Conc 33.9 g/dl (31.0-35.0); Mean Corpuscular Hemoglobin 30.5 pg (27.0-33.0); Mean Corpuscular Volume 90.1 fL (80.0-98.0); Red Blood Count 3.83 X10*6/uL (4.20-5.50); Red Cell Distribution Width 13.5 % (11.0-16.0)
[2021-12-24 06:04] LABS: Platelet Count 38 X10*3/uL (160-400); White Blood Count 2.7 X10*3/uL (4.8-10.8)
[2021-12-24 06:25] LABS: Anion Gap 14 (12-20); Blood Urea Nitrogen 6 mg/dL (9-16); Calcium 9.6 mg/dL (8.4-10.2); Carbon Dioxide 25 mmol/L (22-29); Chloride 100 mmol/L (96-108); Creatinine Clr Calc Pharmacy 118.7; Estimated Glomerular Filt Rate > 60; Glucose Random 81 mg/dL (60-115); Potassium 3.5 mmol/L (3.3-5.1); Sodium 135 mmol/L (135-145)
[2021-12-24 06:37] LABS: Ferritin 869 ng/mL (10-122)
[2021-12-24] MEDS: Famotidine 20 MG TABLET PO (07:38)
[2021-12-24] MEDS: Multivitamin TABLET 1 TAB PO (07:38)
[2021-12-24] MEDS: Gabapentin 300 MG CAPSULE 600 MG PO (07:38)
[2021-12-24] MEDS: 0.9 % Sodium Chloride Flush 3 ML SYRINGE IVFLUSH ×2 (07:38→22:00)
[2021-12-24] MEDS: Naltrexone HCl 50 MG TABLET PO (07:38)
[2021-12-24] MEDS: Loratadine 10 MG TABLET PO (07:38)
[2021-12-24] MEDS: PHENobarbitaL 15 MG TABLET PO (07:38)
--- NOTE | 2021-12-24 07:51 | P.PNIM_ITS ---
Subjective Subjective Date of Service: 12/24/21 Interval History: elevated lft's Physical Exam Vital Signs: Vital Signs: Last Vital Signs Temp 99.2 F 12/24/21 03:59 Pulse 84 12/24/21 03:59 Resp 18 12/24/21 03:59 BP 111/74 12/24/21 03:59 Pulse Ox 98 12/24/21 03:59 BMI result Body Mass Index 20.3 Objective Data Active Medications Artificial Tears (Artificial Tears 15 Ml Drops) 1 drop EYE-BOTH Q4H [facility] Last Admin: 12/24/21 05:50 Dose: Not Given Documented by: DELORES Non-Admin Reason: Patient Refused Famotidine (Famotidine 20 Mg Tablet) 20 mg PO DAILY [facility] Last Admin: 12/24/21 07:38 Dose: 20 mg Documented by: MANUEL Gabapentin (Gabapentin 300 Mg Capsule) 600 mg PO TID [facility] Last Admin: 12/24/21 07:38 Dose: 600 mg Documented by: MANUEL Lactated Ringer's (Lr) 1,000 mls @ 80 mls/hr IVCONT .[id number] [facility] Loratadine (Loratadine 10 Mg Tablet) 10 mg PO DAILY [facility] Last Admin: 12/24/21 07:38 Dose: 10 mg Documented by: MANUEL Melatonin (Melatonin 3 Mg Tablet) 6 mg PO BEDTIME PRN PRN Reason: Insomnia Last Admin: 12/21/21 21:42 Dose: 6 mg Documented by: ARISTIDES Multivitamins/Vitamin C (Multivitamin Tablet) 1 tab PO DAILY [facility] Last Admin: 12/24/21 07:38 Dose: 1 tab Documented by: MANUEL Naltrexone HCl (Naltrexone Hcl 50 Mg Tablet) 50 mg PO DAILY [facility] Last Admin: 12/24/21 07:38 Dose: 50 mg Documented by: MANUEL Pharmacy Consult (Consult Rx Perform Med Rec) 1 each MISCELLANE ONCE PRN PRN Reason: Consult order Pharmacy Consult (Consult Rx Etoh Phenob Po Dose) 1 each MISCELLANE ONCE PRN; Protocol PRN Reason: Consult order Phenobarbital (Phenobarbital 15 Mg Tablet) 15 mg PO DAILY [facility] Stop: 12/25/21 09:01 Last Admin: 12/24/21 07:38 Dose: 15 mg Documented by: MANUEL Sodium Chloride (0.9 % Sodium Chloride Flush 3 Ml Syringe) 3 ml IVFLUSH QSHIFT [facility] Last Admin: 12/24/21 07:38 Dose: 3 ml Documented by: MANUEL Labs CBC & Chem 7: 12/24/21 05:37 12/24/21 05:37 Labs: Laboratory Results - last 24 hr 12/23/21 12/23/21 12/24/21 09:46 09:46 05:37 MCV 88.7 90.1 MCH 30.9 30.5 MCHC 34.9 33.9 RDW 13.1 13.5 Plt Count 20 L* 38 L D MPV 11.5 10.1 Absolute Nucleated RBC 0.000 0.000 Nucleated RBC % (auto) 0.0 0.0 Anion Gap 12 Estim Creat Clear Calc 111.4 Estimated GFR > 60 Random Glucose 131 H Calcium 9.3 D Magnesium 2.1 Ferritin Total Bilirubin 1.5 H Direct Bilirubin 0.9 H AST 465 H ALT 245 H Alkaline Phosphatase 201 H Total Protein 6.7 Albumin 3.8 12/24/21 12/24/21 05:37 05:37 MCV MCH MCHC RDW Plt Count MPV Absolute Nucleated RBC Nucleated RBC % (auto) Anion Gap 14 Estim Creat Clear Calc 118.7 Estimated GFR > 60 Random Glucose 81 Calcium 9.6 Magnesium Ferritin 869 H Total Bilirubin Direct Bilirubin AST ALT Alkaline Phosphatase Total Protein Albumin Assessment and Plan (1) Thrombocytopenia: Status: Acute (2) Elevated LFTs: Status: Acute (3) Alcoholic intoxication: Status: Acute Plan 36 year old female with alcohol dependency here with alcohol intoxiciation, at risk for withdrawal, possible alcoholic gastritis and thrombocytopenia 1.Alcohol dependence/risk of withdrawal -Start Phenobarbital protocol -Thiamine Supplement, Folate is normal -GI eval-serology , LFTs improving but similar range Added initial dose of withdrawal due to anxiety symptoms. 2.Alcoholic hepatitis, seen by GI- no indication for steroid. avoid heptotoxic medications lft's improving monier lft's, hepatitis serologies -heaptitis A -serology pending HepatitisB surface antigen-neg Hepatitis-B surface antibody reactive, hepatitis-B surface core antibody nonreactive. Hepatic C(EIA): Nonreactive. need Gi followup -since lfts's still eleavted,added further immunological workup, abdominal sono to check bilary source. 3.Thrombocytopenia--likely d/t alcholic liver disease--had no bleed earlier but presently no bleed. given platlets Transfuse 1 unit on admission platlets? improving to 17- 14-18-20-38(today). pt/inr normal moniter cbc -Hematolggy consult noted-broad differential(please see hematology note):? Recommended to monitor CBC. If platelets are below 10 or bleeding-may need transfusion. 4. hypokalemia : repeleted and resolved. Inpatient stay:? Alcohol withdrawal, severe thrombocytopenia, elevated LFTs workup pendin Quality Stroke Does the patient have a stroke diagnosis?: No VTE Prior VTE?: No VTE Risk Level:: Medical - low VTE Device Contraindication: Treatment Not Indicated VTE Drug Contraindication: Treatment Not Indicated
[2021-12-24 08:00] VITALS: BP 119/76; PULSE 84; RESP 16; TEMP 36.1; O2SAT 99
[2021-12-24 08:06] LABS: Alanine Aminotransferase 248 U/L (0-31); Albumin Level 3.9 g/dL (3.5-5.0); Alkaline Phosphatase 202 U/L (39-117); Aspartate Amino Transferase 406 U/L (5-31); Bilirubin Direct 0.7 mg/dL (0.0-0.5); Bilirubin Total 1.1 mg/dL (0.0-1.0); Total Protein 6.9 g/dL (6.5-8.0)
[2021-12-24] MEDS: Lactated Ringers 1,000 ML 80 ML IVCONT ×2 (09:47→22:01)
[2021-12-24] MEDS: ALPRAZolam 0.5 MG TABLET PO (09:47)
[2021-12-24 12:00] VITALS: BP 111/73; PULSE 84; RESP 17; TEMP 37.1; O2SAT 100
--- NOTE | 2021-12-24 13:40 | MHC.CM.PN ---
PATIENT NOT IMPROVING. PLAN IS CONTINUE TO MONITOR LFT AND CONSULT NEURO.
[2021-12-24] MEDS: Gabapentin 400 MG CAPSULE PO ×2 (15:11→20:34)
[2021-12-24 15:34] VITALS: BP 112/71; PULSE 87; RESP 8; TEMP 36.6; O2SAT 100
[2021-12-24 19:25] VITALS: BP 129/80; PULSE 93; RESP 20; TEMP 36.4; O2SAT 100
[2021-12-24] MEDS: Zolpidem Tartrate 5 MG TABLET PO (22:00)
[2021-12-24 23:33] VITALS: BP 105/69; PULSE 78; RESP 17; TEMP 36.7; O2SAT 99
[2021-12-25 01:21] LABS: Zinc 72 mcg/dL (60-130)
[2021-12-25] MEDS: Melatonin 3 MG TABLET 6 MG PO (02:37)
[2021-12-25 03:27] VITALS: BP 118/72; PULSE 82; RESP 18; TEMP 36.4; O2SAT 96
[2021-12-25 06:32] LABS: Alanine Aminotransferase 210 U/L (0-31); Albumin Level 3.8 g/dL (3.5-5.0); Alkaline Phosphatase 180 U/L (39-117); Aspartate Amino Transferase 301 U/L (5-31); Bilirubin Direct 0.6 mg/dL (0.0-0.5); Total Protein 6.6 g/dL (6.5-8.0)
[2021-12-25 06:39] LABS: Hepatitis A Antibody IgM 0.29 Index (0-0.79); ~Hepatitis A Antibody IgM Nonreactive (Nonreactive)
[2021-12-25] MEDS: Loratadine 10 MG TABLET PO (07:34)
[2021-12-25] MEDS: Famotidine 20 MG TABLET PO (07:35)
[2021-12-25] MEDS: Naltrexone HCl 50 MG TABLET PO (07:35)
[2021-12-25] MEDS: PHENobarbitaL 15 MG TABLET PO (07:35)
[2021-12-25] MEDS: Multivitamin TABLET 1 TAB PO (07:35)
[2021-12-25] MEDS: Gabapentin 400 MG CAPSULE PO (07:35)
[2021-12-25 07:39] VITALS: BP 129/88; PULSE 91; RESP 17; TEMP 36.4; O2SAT 100
--- NOTE | 2021-12-25 09:55 | P.CDIC_ITS ---
CDI Concurrent Query Documentation Clarification: PHYSICIAN'S DOCUMENTATION REQUEST Date of Query: 12/25/21 0955 Patient Name: Letha Maldonado Admit Date: 12/19/21 Dear Doctor, A review of the medical record indicates additional documentation may be needed. Please review below and update the documentation accordingly. Clinical Indicators: Is there a diagnosis that correlates with these lab findings: Risk Factors/Clinical Indicators/Treatments LABS 12/23 - potassium 2.8 Please indicate in your progress notes if you are in agreement that the above diagnosis is valid for this patient: Hypokalemia or other etiology of lab findings: * Yes, [ ] is a valid diagnosis for this patient * No, [ ] is a not a valid diagnosis for this patient * Other (please specify) * Unable to determine Use of terms such as suspected, likely, concern for, or probable (associated with a specific diagnosis that is being evaluated, monitored, or treated as if it exists) are acceptable and can be coded in the inpatient setting, when documented at the time of discharge. Thank you, Radha Chase [facility], [facility] Extension: [phone] Please use your independent medical judgment in providing your response. THIS QUERY IS PART OF THE PERMANENT MEDICAL RECORD Provider Response: Other Other Diagnosis: hypokalemia
[2021-12-25 11:47] VITALS: BP 134/85; PULSE 97; RESP 18; TEMP 36; O2SAT 100
--- NOTE | 2021-12-25 13:05 | MHC.CM.PN ---
PATIENT IS DISCHARGED HOME - SELF CARE RN AWARE OF PLAN.
[2021-12-25 13:07] LABS: Immunoglobulin A 293 mg/dL (47-310)
--- NOTE | 2021-12-25 13:07 | PM.DS ---
DS: Providers Provider Date of Service: 12/25/21 Date of admission: 12/19/21 21:50 Primary care physician: None Physician Consults: 12/19/21 21:50 Consult to Gastroenterology Routine Consulting Provider: Ade Robles Reason for consultation: acute alcoholic hepatitis Has provider been notified: No 12/19/21 22:06 Consult to Hematology / Oncology Routine Consulting Provider: Flavio Cuevas Reason for consultation: severe thrombocytopenia Has provider been notified: No 12/20/21 11:32 Consult to Care Team Routine Comment: Reason for consultation: anxiety DS: Diagnosis Discharge Diagnosis (1) Thrombocytopenia: Status: Acute DS: Summary Hospital Course Hospital Course: 36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 She has been staying at a local hotel? and was forced out by Police and was seeking detox, he reports having being feeling sick with nause and vomitting and has had nosebleed. Her platlet cout is 11, no obvious signs of alcohol withdrawal, alochol level is 438, LFTs are high, normal INR. Hospital course: Patient admitted to the hospital because of alcohol withdrawal, thrombocytopenia, elevated LFTs: Patient was given phenobarb protocol, monitor foot or thrombocytopenia-his alcohol withdrawals are improving, also thrombocytopenia also improving. Hypokalemia: Repleted and resolved. Thrombocytopenia : Could be multifactorial-hypersplenism,, alcohol use,may have underlying hematological condition: Patient was advised to follow-up CBC out patiently in 1 week. Consider outpatient hematology evaluation with PCP. Patient was strongly advised to abstain from alcohol. Elevated LFT: Hepatitis serology seems fine except hepatitis-B surface antibody reactive, immunologic testing pending. Seen by GI LFTs are improving, abdominal soreness oz shows liver fatty infiltration. Since LFTs are improving and patient is asymptomatic-patient is to follow up outpatient with PCP and monitor LFTs in 1 week. May consider outpatient GI evaluation. Patient wants to follow-up with PCP and goes for further Hematology and GI evaluation as per PCP. She was strongly advised to repeat CBC and BMP on Thursday/thursday. Time Spent with Patient Time attestation: Total time spent providing and/or coordinating discharge services: Discharge coordination time: Greater than 30 minutes Quality: Safe Use of Opioids Does Pt have an Active Cancer Diagnosis on the Problem List?: No Quality: Stroke Does the patient have a stroke diagnosis?: No Physical Exam Vital Signs: Vital Signs: Last Vital Signs Temp 96.8 F 12/25/21 11:47 Pulse 97 12/25/21 11:47 Resp 18 12/25/21 11:47 BP 134/85 12/25/21 11:47 Pulse Ox 100 12/25/21 11:47 BMI result Body Mass Index 20.3 DS: Data Data Completed and Pending Labs on day of discharge: Laboratory Results - last 24 hr 12/21/21 12/21/21 12/24/21 06:37 06:37 05:37 Total Bilirubin Direct Bilirubin AST ALT Alkaline Phosphatase Total Protein Albumin Zinc 72 IgA 293 Hepatitis A IgM Ab Nonreactive 12/25/21 05:50 Total Bilirubin 1.0 Direct Bilirubin 0.6 H AST 301 H ALT 210 H Alkaline Phosphatase 180 H Total Protein 6.6 Albumin 3.8 Zinc IgA Hepatitis A IgM Ab Additional Comments Additional comments: ?US/US abdomen limited IMPRESSION: Echogenic liver suggestive of fatty infiltration. Otherwise unremarkable exam. Discharge Plan Discharge Patient Disposition: Home, Self-Care Discharge Diagnosis: thrombocytopenia , elevated Lft's Referrals: Physician,None [Primary Care Provider] - 1 Week Discharge Medications: New famotidine 20 mg Tablet 20 mg PO DAILY Qty: 30 0RF Continued multivitamin Tablet 1 tab PO DAILY 0RF naltrexone 50 mg Tablet 50 mg PO DAILY 0RF Changed gabapentin 300 mg capsule 1 cap PO TID Qty: 0 0RF Discharge Orders: Discharge Order (Routine); Ordered 12/25/21 Ordered By: Nishant Pickens Diet: advance to usual diet Activity on Discharge: As tolerated Stand Alone Forms: Patient Portal Discharge page Care Plan Goals: Patient admitted to the hospital because of alcohol withdrawal, thrombocytopenia, elevated LFTs: Patient was given phenobarb protocol, monitor foot or thrombocytopenia-his alcohol withdrawals are improving, also thrombocytopenia also improving. Hypokalemia: Repleted and resolved. Thrombocytopenia : Could be multifactorial-hypersplenism,, alcohol use,may have underlying hematological condition: Patient was advised to follow-up CBC out patiently in 1 week. Consider outpatient hematology evaluation with PCP. Patient was strongly advised to abstain from alcohol. Elevated LFT: Hepatitis serology seems fine except hepatitis-B surface antibody reactive, immunologic testing pending. Seen by GI LFTs are improving, abdominal soreness oz shows liver fatty infiltration. Since LFTs are improving and patient is asymptomatic-patient is to follow up outpatient with PCP and monitor LFTs in 1 week. May consider outpatient GI evaluation. Patient wants to follow-up with PCP and goes for further Hematology and GI evaluation as per PCP. She was strongly advised to repeat CBC and BMP on Thursday/thursday. Health Concerns: As above. Plan of Treatment: As above. Assessment: As above. Discharge Date/Time: 12/25/21 13:38
[2021-12-25 14:11] LABS: Anti Nuclear Antibody Screen NEGATIVE (NEGATIVE)
[2021-12-25 21:01] LABS: Transglutaminase IgA <1.0 U/mL
[2021-12-29 13:36] LABS: Smooth Muscle Antibody <20 U (<20)
[2021-12-31 15:42] LABS: Mitochondrial Antibodies NEGATIVE (NEGATIVE)
== END 2021-12-25 13:38 | disposition home or self-care (01) | DRG 241 ==
LOC: HO.ED 17:55 → HO.EDOVER 22:06 → HO.S3 12-20 18:24
PROVIDERS: Internal Medicine Gastroenterology; Admitting Provider Internal Medicine; Emergency Provider Internal Medicine; Visit Provider Internal Medicine
DX: K29.20 Alcoholic gastritis without bleeding (principal); D69.59 Other secondary thrombocytopenia; K70.10 Alcoholic hepatitis without ascites; D72.819 Decreased white blood cell count, unspecified; F10.229 Alcohol dependence with intoxication, unspecified; E87.6 Hypokalemia; F10.239 Alcohol dependence with withdrawal, unspecified; Y90.8 Blood alcohol level of 240 mg/100 ml or more; Z20.822 Contact with and (suspected) exposure to COVID-19; Z79.899 Other long term (current) drug therapy
CPT/HCPCS: 36415; 36430; 74176; 76705; 80048; 80053; 80076; 80307; 81001; 81025; 82009; 82077; 82248; 82306; 82607; 82728; 82746; 82784; 83540; 83735; 84443; 84630; 85025; 85027; 85610; 85730; 86015; 86038; 86039; 86255; 86256; 86364; 86704; 86706; 86709; 86803; 86850; 86900; 86901; 87340; 87502; 87635; 96374; 99204; 99285; J2060; J2405; P9035